=== PATIENT | male | born 1985 | race Caucasian/White ===

== ENCOUNTER 2018-02-09 17:48 | Emergency (ER) | payer MEDICAID, SELFPAY ==
[2018-02-09 17:49] VITALS: BP 136/73; PULSE 79; RESP 18; TEMP 36.9; O2SAT 97; BMI 21.7
--- NOTE | 2018-02-09 20:14 | ED.VISSUMM ---
- ER Visit Summary Date of Service: 02/09/18 Chief Complaint: Left wrist pain History of Present Illness: The patient is a 32 M who states he picked up his daughter 2 weeks ago and felt a pop in his left wrist. Since that time he continues to have a constant aching pain with occasional sharp pain. He took some ibuprofen at work one day last week, but otherwise has not been taking anything for pain. He denies paresthesias. Physical Examination: Vital signs are unremarkable. Patient sitting upright in bed no acute distress. Left upper extremity examination was no tenderness at the shoulder, elbow. He has mild tenderness of the volar aspect of the left wrist at the carpal tunnel. He has full range of motion. Normal cap refill is noted distally. There is no focal tenderness over the hand itself. Test Results: Left wrist x-rays are unremarkable. Emergency Department Course and Treatment: Patient is treated with Naprosyn. He was placed in a Velcro wrist splint. He is referred to establish a primary care physician. Treatment Plan: [] Disposition: Discharge Impression: Left wrist sprain This note was generated with [employer] dictation software. It may contain incorrect words, spelling, and punctuation that were not noted in review of the chart prior to signing ED Disposition - Plan for ED Patient: Disposition: Home or Assisted Living Chief Complaint: Upper Extremity Injury Instructions: ED Splint Care JULIENNE Yates Sprain Wrist Prescriptions: Naproxen [Naprosyn] 500 mg PO BID PRN PRN #20 tablet PRN Reason: Pain Referrals: Reema Beltre MD [STAFF PHYSICIAN] - As Needed
[2018-02-09] MEDS: Naproxen 500 MG Tablet PO (20:20)
[2018-02-09 20:25] VITALS: BP 128/78; PULSE 82; RESP 16; O2SAT 99
== END 2018-02-09 20:25 | disposition home or self-care (01) ==
PROVIDERS: Emergency Provider Emergency Medicine
DX: S63.502A Unspecified sprain of left wrist, initial encounter (principal); X50.1XXA Overexertion from prolonged static or awkward postures, initial encounter; Y93.9 Activity, unspecified; Y92.89 Other specified places as the place of occurrence of the external cause; Y99.9 Unspecified external cause status
CPT/HCPCS: 73110; 99283

== ENCOUNTER 2020-10-20 10:18 | Day surgery (SDC) | payer MEDICAID, SELFPAY ==
--- NOTE | 2020-10-19 13:17 | EKG12_ITS ---
Test Reason : PREOP Blood Pressure : / mmHG Vent. Rate : 054 BPM Atrial Rate : 054 BPM P-R Int : 148 ms QRS Dur : 100 ms QT Int : 424 ms P-R-T Axes : 076 042 065 degrees QTc Int : 402 ms Sinus bradycardia Otherwise normal ECG Confirmed by ELEN YEN, FELISHA ([id number]), editor book PANTERA MALLOY ([id number]) on 10/20/2020 8:19:52 AM Referred By: Charles Coulter Confirmed By:LUTHER MYRICK MD
[2020-10-19 14:07] LABS: Hematocrit 43.6 % (40-54); Hemoglobin 14.5 g/dL (13.0-16.5); Mean Corp Hgb Conc 33.3 g/dL (32-36); Mean Corpuscular Hgb 27.9 pg (27.0-32.0); Mean Platelet Vol. 10.4 fl (6.2-12.0); Platelet Count 450 K/mm3 (150-450); RBC Distribution Width CV 12.9 % (11.6-14.6); RBC Distribution Width SD 39.3 fl (35.1-43.9); Red Blood Count 5.19 M/mm3 (4.6-6.2); White Blood Count 8.1 K/mm3 (4.4-11.0)
[2020-10-20] VITALS (7 sets, daily range): BP systolic 120–133; BP diastolic 68–94; PULSE 61–79; RESP 16; TEMP 36.2–36.9; O2SAT 96–99; BMI 25.7
[2020-10-20] MEDS: Lactated Ringers 1,000 ML 100 ML IV (10:46)
[2020-10-20] MEDS: Cefazolin 2 GM in 0.9% Normal Saline 100 ML IV (12:37)
--- NOTE | 2020-10-20 12:47 | OP.PCM_ITS ---
Problem List (1) Bilateral inguinal hernia Status: Acute Qualifiers: Obstruction and gangrene presence: without obstruction or gangrene Recurrence: non-recurrent Qualified Code(s): K40.20 - Bilateral inguinal hernia, without obstruction or gangrene, not specified as recurrent Report of Operation Date of Procedure: 10/20/20 Pre-Operative Diagnosis: Bilateral inguinal hernias Post-Operative Diagnosis: Same Surgery/Procedure Performed:: Robotically assisted laparoscopic bilateral inguinal hernia repair with mesh Type of Anesthesia:: General Anesthesiologist: Sven Sam Estimated Blood Loss (mL): < 25 cc Description of Procedure: Patient was brought into the operating room. Placed in the supine position. Under excellent endotracheal intubation House catheter was placed the abdomen was sterilely prepped draped in usual fashion. Was injected supraumbilically dissection was carried down to the fascia the fascia grasped with [place]. Varies needle was placed inside the abdomen the abdomen was insufflated to 15 torr. #8 trocar was placed without difficulty. It was flank by 2 other #8 trochars both placed under direct visualization. Patient was placed in the headdown position. The robot was brought in and docked appropriately patient. I scored the peritoneum on the left dissected down towards Harmeet's ligament dissected further laterally quite a bit of dissecting to bring back an indirect inguinal hernia into the peritoneal cavity and then dissected further laterally. I then went to the right side in similar fashion dissected down to Harmeet's and then dissected a indirect inguinal hernia free and then dissected further laterally on both sides protecting the cord and vessel structures and the vas deferens clearly. I placed 2 medium progrip mesh into the inguinal areas they laid completely flat they look quite nice and I was very happy with that I had some overlap in the center which I thought was appropriate I then reperitonealized the area using a 3 OV lock suture covering the mesh completely. Everything laid fat that looked nice remove the trochars under direct visualization good mistakes was noted. Skin incisions were closed with subcuticular stitches of 4- 0 Monocryl. Steri-Strips were applied sterile dressings were applied and the patient tolerated the procedure well. - Admit VTE Documentation VTE Present on Admission: No VTE Mechan Device Prophylaxis: SCD's VTE Pharm Prophylaxis ordered?: No Reason prophylaxis not ordered:: Treatment Not Indicated
--- NOTE | 2020-10-20 12:50 | PCM.DC.HER ---
Discharge Diet: Light diet - advance as tolerated Discharge Activity: Return to Normal Activity, May Drive - when you are no longer taking narcotic pain medications., May Shower - with the bandage in place 1-2 days after surgery. Lifting Restrictions: 20 pounds for 8 weeks. Additional Activity Instructions:: Climbing stairs is fine, walking is encouraged. Sitting in bed may be uncomfortable. Sitting up using your lateral muscles (sitting up sideways) is usually more comfortable. Do not drive, work heavy equipment of sign legal documents for 24 hours. If your hernia repair was an ingunial repair, you may have scrotal swelling, an ice pack and/or athletic support can provide more comfort. Pain medications may cause nausea, you should typically eat light foods as you take your pain medications. Pain medications may also cause constipation. If you have difficulty with this, discuss with your doctor. Call your doctor if your incision/area has: Continuous Slow Oozing, Sudden Increased Bleeding, Increased Pain/ Swelling, Increased Redness, Foul Smelling Discharge Call your doctor if you observe: Fever of 101 or Higher Suture Line Care: Avoid Pulling/Pushing, Avoid Pinching/Bending Additional Dressing/Incision Instructions:: Leave the operative bandage on for 2-3 days. When you remove the bandage, leave the steri-strips on place until your follow up appointment or they fall off. Allergies/Adverse Reactions: Allergies No Known Allergies Allergy (Verified 10/20/20 10:40) Medications to take at Discharge Escitalopram Oxalate [Lexapro] 10 mg PO QHS 10/19/20 Ibuprofen [Motrin] 800 mg PO TID PRN PRN 10/19/20 Oxycodone HCl/Acetaminophen [Percocet 5/325] 1 - 2 tablet PO Q4H PRN PRN 5 Days #30 tablet 10/20/20 The following prescriptions were given: Oxycodone HCl/Acetaminophen [Percocet 5/325] 1 - 2 tablet PO Q4H PRN PRN 5 Days #30 tablet PRN Reason: Pain Transmission [facility]: [facility] Primary Care Physician: Care Physician,No Primary [Primary Care Provider] - Test Results: Test results from this visit will be discussed in further detail at your follow-up appointment, if applicable. Please Follow Up With: Hoffman,Indu PA, PA-C When: Plan to have a follow up appointment in 7 days. Call to schedule.
[2020-10-20] MEDS: Bupivacaine Mpf 0.5% 30 ML VIAL (14:30)
[2020-10-20] MEDS: Acetaminophen 325 MG Tablet PO (15:27)
[2020-10-20] MEDS: oxyCODONE 5 MG Tablet PO (16:05)
== END 2020-10-20 16:44 | disposition home or self-care (01) ==
LOC: SDC 10:19 → AC 10:21
PROVIDERS: Anesthesiology; Referring Provider Surgery; Visit Provider Surgery
PROC: (CPT 49650; principal; 2020-10-20 12:10)
DX: K40.20 Bilateral inguinal hernia, without obstruction or gangrene, not specified as recurrent (principal); F90.9 Attention-deficit hyperactivity disorder, unspecified type
CPT/HCPCS: 00840; 49650; S2900; 36415; 85027; 87426; 93005; C9803; J7120; J2405

== ENCOUNTER 2023-08-05 19:47 | Observation (INO) | payer MEDICAID, SELFPAY ==
[2023-08-05 19:48] VITALS: BP 136/75; PULSE 75; RESP 14; TEMP 36.2; O2SAT 100; BMI 22.5
--- OUTSIDE RECORDS SUMMARY | 2023-08-05 21:05 | XMS RPT_ITS | CCD ---
Author Name Unknown Address [address] [place] [address] Organization [facility] Care Team Providers Care Windmill Technician Name Role Phone Unavailable Unavailable Unavailable ALBERT PIERRE Unavailable Unavailable ALBERT PIERRE Unavailable Unavailable Stacie Villa Unavailable Unavailab Stacie Seals Unavailable Unavailab Adam Edwards Unavailable Unavailable Adam Beckwith Unavailable Unavailable Sea Irving Unavailable Unavailable Sea Irving Unavailable Unavailable STACIE VILLA Unavailable Unavail able MARÍA ALLISON Unavailable Unavailable MARÍA ALLISON Unavailable Unavailable Unavailable Primary Care Provider Unavailrissa Brown MD, Jana Primary Care Provider [phone] Tasia Figueroa MD Unavailable KIARA KELLY Referring Unavail able JANA BROWN Primary Care Unavailable KIARA KELLY Referring Unavail able JANA BROWN Primary Care Unavailable TASIA FIGUEROA Attending Unavailab JANA Sheehan Primary Care Unavailable JANA BROWN Primary Care Unavailable JUAN COTTRELL Attending Unavailable Medications Current Medications Medication Drug Class(es) Dates Sig (Normalized) Sig (Original) acetaminophen 500 mg oral tablet (3 sources) Start: 02-11-2021 take 1 tablet by mouth four times daily as needed for pain acetaminophen (TYLENOL) 500 MG tablet Take 1 tablet by mouth 4 times daily as needed for Pain 120 tablet 0 02/11/2021 Active Completed/Discontinued Medications Medication Drug Class(es) Dates Sig (Normalized) Sig (Original) diclofenac sodium 0.01 mg/mg topical gel (4 sources) Nonsteroidal Anti-inflammatory Drug Start: 11-27-2021 apply 2 g topically three times daily as needed for pain diclofenac (VOLTAREN) 1 % topical gel Indications: Arthritis of knee , History of fracture of lower extremity Apply 2 g to affected area three times daily as needed (knee pain). 180 g 2 11/27/2021 Active Problems Active Problems Problem Classification Problem Date Documented Date Episodic/Chronic Abdominal hernia (2 sources) Bilateral inguinal hernia; Translations: [Bilateral inguinal hernia, without obstruction or gangrene, not specified as recurrent] Onset: 02-11-2021 02-11-2021 Episodic Anxiety disorders (2 sources) Mixed anxiety and depressive disorder; Translations: [Other specified anxiety disorders] Onset: 01-10-2022 Chronic Asthma (2 sources) Asthma; Translations: [Unspecified asthma, uncomplicated] Onset: 08-12-2019 02-11-2021 Chronic Attention-deficit, conduct, and disruptive behavior disorders (6 sources) Attention deficit hyperactivity disorder; Translations: [Attention-deficit hyperactivity disorder, unspecified type] Onset: 08-12-2019 02-11-2021 Chronic External Injury - Natural / Environment (2 sources) Bitten or stung by nonvenomous insect and other nonvenomous arthropods, initial encounter; Translations: [Bitten or stung by nonvenomous insect and other nonvenomous arthropods, initial encounter] Onset: 01-17-2017 Mood disorders (3 sources) Mild depression; Translations: [Major depressive disorder, single episode, mild] Onset: 10-04-2019 02-11-2021 Chronic Osteoarthritis (2 sources) Arthritis of knee; Translations: [Unilateral primary osteoarthritis, unspecified knee] Onset: 11-29-2021 Chronic Other injuries and conditions due to external causes (5 sources) H/O: fracture; Translations: [Personal history of (healed) traumatic fracture] Onset: 11-27-2021 Episodic Other nervous system disorders (1 source) Other chronic pain; Translations: [Chronic pain of both knees] Onset: 11-29-2021 Chronic Other upper respiratory infections (1 source) Upper respiratory infection; Translations: [Acute upper respiratory infection, unspecified] Episodic Residual codes; unclassified (1 source) Generalized aches and pains; Translations: [Pain, unspecified] Episodic Residual codes; unclassified (1 source) Chill; Translations: [Chills (without fever)] Episodic Substance-related disorders (2 sources) Nicotine dependence, cigarettes, uncomplicated; Translations: [Nicotine dependence, cigarettes, uncomplicated] Onset: 03-07-2017 Chronic Past or Other Problems Problem Classification Problem Date Documented Date Episodic/Chronic Administrative/social admission (4 sources) Encounter for other administrative examinations; Translations: [Persons encountering health services in other specified circumstances] Onset: 06-25-2017 Episodic Disorders of teeth and jaw (2 sources) Dental caries, unspecified; Translations: [Dental caries, unspecified] Onset: 03-07-2017 Episodic Headache, including migraine (2 sources) Headache; Translations: [Headache] Onset: 09-06-2017 Episodic Nausea and vomiting (1 source) Nausea with vomiting, unspecified; Translations: [Nausea with vomiting, unspecified] Onset: 09-17-2017 Episodic Other injuries and conditions due to external causes (1 source) Personal history of (healed) traumatic fracture; Translations: [History of fracture of lower extremity] Onset: 11-27-2021 Episodic Other non-traumatic joint disorders (4 sources) Pain in right knee; Translations: [Pain in right knee] Onset: 03-07-2017 Episodic Other non-traumatic joint disorders (1 source) Pain in left knee; Translations: [Chronic pain of both knees] Onset: 11-29-2021 Episodic Superficial injury; contusion (2 sources) Insect bite (nonvenomous) of other part of head, initial encounter; Translations: [Insect bite (nonvenomous) of other part of head, initial encounter] Onset: 01-17-2017 Episodic Viral infection (2 sources) Other viral warts; Translations: [Other viral warts] Onset: 03-07-2017 Episodic Results Test Name Value Interpretation Reference Range Facil ity Vital Signs Date Time Vital Sign Value Performing Clinician Facility 01-10-2022 10:34-0400 Body height 182.9 cm Juan Cottrell MD Work Phone: [facility] 01-10-2022 10:34-0400 Body temperature 97.2 [degF] Juan Cottrell MD Work Phone: [facility] 01-10-2022 10:34-0400 Body weight 87.54 kg Juan Cottrell MD Work Phone: [facility] 01-10-2022 10:34-0400 Diastolic blood pressure 60 mm[Hg] Juan Cottrell MD Work Phone: [facility] 01-10-2022 10:34-0400 Heart rate 74 /min Juan Cottrell MD Work Phone: [facility] 01-10-2022 10:34-0400 Systolic blood pressure 99 mm[Hg] Juan Cottrell MD Work Phone: [facility] 02-14-2021 11:52-0400 Diastolic blood pressure 73 mm[Hg] Alejandro Lopez MD Work Phone: [facility] Work Phone: 02-14-2021 11:52-0400 Heart rate 81 /min Alejandro Lopez MD Work Phone: [facility] Work Phone: 02-14-2021 11:52-0400 Respiratory rate 18 /min Alejandro Lopez MD Work Phone: [facility] Work Phone: 02-14-2021 11:52-0400 SaO2% (BldA) [Mass fraction] 99 % Alejandro Lopez MD Work Phone: [facility] Work Phone: 02-14-2021 11:52-0400 Systolic blood pressure 117 mm[Hg] Alejandro Lopez MD Work Phone: [facility] Work Phone: 02-14-2021 10:47-0400 Body temperature 98.2 [degF] Alejandro Lopez MD Work Phone: [facility] Work Phone: 02-11-2021 10:10-0400 Body height 182.9 cm Tom Brambila MD Work Phone: [facility] Work Phone: 02-11-2021 10:10-0400 Body mass index (BMI) [Ratio] 26.45 kg/m2 Tom Brambila MD Work Phone: [facility] Work Phone: 02-11-2021 10:10-0400 Body temperature 99.39 [degF] Tom Brambila MD Work Phone: [facility] Work Phone: 02-11-2021 10:10-0400 Body weight 88.45 kg Tom Brambila MD Work Phone: [facility] Work Phone: 02-11-2021 10:10-0400 Diastolic blood pressure 63 mm[Hg] Tom Brambila MD Work Phone: [facility] Work Phone: 02-11-2021 10:10-0400 Heart rate 93 /min Tom Brambila MD Work Phone: [facility] Work Phone: 02-11-2021 10:10-0400 Respiratory rate 16 /min Tom Brambila MD Work Phone: [facility] Work Phone: 02-11-2021 10:10-0400 SaO2% (BldA) [Mass fraction] 98 % Tom Brambila MD Work Phone: [facility] Work Phone: 02-11-2021 10:10-0400 Systolic blood pressure 111 mm[Hg] Tom Brambila MD Work Phone: [facility] Work Phone: Encounters Encounter Date Encounter Type Care Provider Facility Start: 01-10-2022 End: 01-10-2022 ambulatory NKOSI STEPHANIE Facility:[facility] Start: 01-10-2022 End: 01-10-2022 Patient encounter procedure Juan Cottrell MD Work Phone: [facility] Procedures Date Procedure Procedure Detail Performing Clinician Start: 01-10-2022 Adult depression screening assessment Juan Cottrell MD Work Phone: Start: 11-29-2021 Radiologic exam knee complete 4/more views Mele Hobbs DO Work Phone: Start: 02-11-2021 Radiologic exam comp lete acute abdomen series Tom Brambila MD Work Phone: Start: 10-09-2020 Adult depression screening assessment [facility] Plan of Treatment Date Care Activity Detail Author Start: 10-12-2025 LIPID SCREEN LIPID SCREEN [facility] Start: 12-28-2024 Urine microalbumin profile DTAP,TDAP,TD (2 - Td or Tdap) [facility] Start: 01-10-2023 Adult depression screening assessment DEPRESSION SCREENING [facility] Start: 02-28-2022 Influenza vaccination [facility] Start: 11-18-2021 COVID-19 VACCINE (3 - Booster for Moderna series) COVID-19 VACCINE (3 - Booster for Moderna series) [facility] Start: 10-09-2021 Adult depression screening assessment DEPRESSION SCREENING [facility] Start: 02-28-2021 Influenza vaccination Flu vaccine (# 1) [facility] Work Phone: Start: 1995 COVID-19 Vaccine (1) COVID-19 Vaccin e (1) [facility] Work Phone: End: 02-14-2021 COVID-19 COVID-19 Lab Routine One Time for 1 Occurrences starting 02/14/2021 until 02/14/2021 [facility] Work Phone: Immunizations Immunization Date Immunization Notes Care Provider Fa adrian 08-12-2019 influenza, injectabl e, quadrivalent, preservative free [facility] 12-28-2014 tetanus toxoid, redu jadyn diphtheria toxoid, and acellular pertussis vaccine, adsorbed [facility] Work Phone: 03-30-2014 TD(adult) unspecifie d formulation Xr [facility] Payers Date Payer Category Payer Medicaid [employer] [id number] 2020-Present [phone] [address] [place] [address] Medicaid [id number] 2020 Medicaid [id number] 2016 Medicaid [id number] Private Health Insurance [id number] Social History Date Type Detail Facility Start: 03-05-2017 End: 04-16-2017 Tobacco smoking status MIIS Unknown if ever smoked [facility] Work Phone: Start: 1985 Sex Assigned At Not on file [facility] Work Phone: Start: 02-11-2021 Tobacco smoking stat [facility] Never smoker [facility] Work Phone: Start: 02-11-2021 Tobacco use and exposure Never used [facility] Start: 02-11-2021 Alcohol intake Current non-dr collections specialist of alcohol (finding) [facility] Work Phone: Start: 11-19-2021 End: 01-10-2022 Exposure to SARS-CoV-2 (event) Not sure [facility] Start: 11-27-2021 Tobacco smoking stat [facility] Ex-smoker [facility] End: 11-27-2016 History of tobacco use Current smoker [facility] End: 11-27-2016 History of tobacco use Cigarette Smoker [facility] Start: 11-27-2021 Tobacco use and exposure User of smokeless tobacco [facility] Start: 11-27-2021 End: 01-10-2022 Alcohol intake Current drinker of alcohol (finding) [facility] Clinical Notes 10-09-2020 to 01-10-2022 Juan Cottrell MD - 01/10/2022 11:37 AM EDT Note Date & Type Note Facility 01-10-2022 Note HNO ID: [id number] Author: Quiana Alba MD Service: ? Author Type: Physician Type: Progress Notes Filed: 03/31/2022 3:47 PM Note Text: Attending Note I discussed patient's history, exam, assessment, and plan with the resident on 01/10/22 but did not examine the patient myself. I reviewed the resident's note. I agree with the resident's assessment and plan unless otherwise noted. Chief Complaint: Anxiety and Depression Quiana Alba MD [facility] 01-10-2022 Note HNO ID: [id number] Author: Juan Cottrell MD Service: ? Author Type: Resident Type: Progress Notes Filed: 01/10/2022 12:08 PM Note Text: Juan Cottrell M.D. Family Medicine ([facility]) Outpatient Office Note 1 [facility] [address] [place], [place] [address] Visit Date: January 10, 2022 Name: Colten Muñoz Date of : 1985 MRN/E #: [id number] Subjective Colten Muñoz is a 36 year old male here today to discuss anxiety and depression. Anxiety/Depression - On Lexapro 5 mg - Wants to go back on Lexapro 10 mg - No recent events triggered it - Had surgery, COVID, whole family got COVID - Moved back to [place] and restarted it - Has been on 5 mg for the past month - Has felt slightly better being back on it - No SI or HI Social History Tobacco Use - Smoking status: Former Smoker Years: 12.00 Types: Cigarettes Quit date: 11/27/2016 Years since quittin.1 - Smokeless tobacco: Current User Substance Use Topics - Alcohol use: Yes Comment: seldom - Drug use: No ALLERGIES No Known Allergies Current Outpatient Medications Medication Sig - diclofenac (VOLTAREN) 1 % topical gel Apply 2 g to affected area three times daily as needed (knee pain). - ibuprofen (MOTRIN) 800 mg tablet Take 1 tablet by mouth every 8 hours as needed for pain (with food.). - escitalopram oxalate (LEXAPRO) 10 mg tablet Take 1 tablet by mouth once daily. No current facility-administered medications for this visit. I have confirmed and edited as necessary the chief complaint, medications, past medical, family and social histories. Objective 01/10/22 1034 BP: 99/60 Pulse: 74 Temp: 36.2 ?C (97.2 ?F) Weight: 193 lb (87.5 kg) Height: 6' (1.829 m) Body mass index is 26.18 kg/m?. Physical Exam Vitals and nursing note reviewed. Constitutional: General: He is not in acute distress. Appearance: Normal appearance. He is not ill-appearing. HENT: Head: Normocephalic and atraumatic. Cardiovascular: Rate and Rhythm: Normal rate and regular rhythm. Pulses: Normal pulses. Heart sounds: Normal heart sounds. No murmur heard. No friction rub. No gallop. Pulmonary: Effort: Pulmonary effort is normal. No respiratory distress. Breath sounds: Normal breath sounds. No wheezing or rales. Abdominal: General: There is no distension. Palpations: Abdomen is soft. Tenderness: There is no abdominal tenderness. There is no guarding or rebound. Musculoskeletal: General: No swelling or tenderness. Skin: General: Skin is warm and dry. Neurological: General: No focal deficit present. Mental Status: He is alert. Results for orders placed or performed in visit on 11/29/21 COMP METABOLIC PANEL Result Value Ref Range Protein, Total 6.8 6.3 - 8.0 g/dL Albumin 4.1 3.9 - 4.9 g/dL Calcium, Total 9.5 8.5 - 10.2 mg/dL Bilirubin, Total 0.3 0.2 - 1.3 mg/dL Alkaline Phosphatase 50 38 - 113 U/L AST 16 14 - 40 U/L ALT 12 10 - 54 U/L Glucose 86 74 - 99 mg/dL BUN 10 9 - 24 mg/dL Creatinine 1.04 0.73 - 1.22 mg/dL Sodium 139 136 - 144 mmol/L Potassium 3.9 3.7 - 5.1 mmol/L Chloride 103 97 - 105 mmol/L CO2 29 22 - 30 mmol/L Anion Gap 7 (L) 9 - 18 mmol/L Estimated Glomerular Filtration Rate 94 >=60 mL/min/1.73m? CBC Result Value Ref Range WBC 7.38 3.70 - 11.00 k/uL RBC 5.18 4.20 - 6.00 m/uL Hemoglobin 14.8 13.0 - 17.0 g/dL Hematocrit 44.4 39.0 - 51.0 % MCV 85.7 80.0 - 100.0 fL MCH 28.6 26.0 - 34.0 pg MCHC 33.3 30.5 - 36.0 g/dL RDW-CV 13.1 11.5 - 15.0 % Platelet Count 438 (H) 150 - 400 k/uL MPV 10.8 9.0 - 12.7 fL Absolute nRBC <0.01 <0.01 k/uL Assessment AND Plan ASSESSMENT/PLAN: 1. Anxiety with depression - ICD9: 300.4, ICD10: F41.8 - Historically on 10 mg daily - Since moving from [place] was off completely. Previously seen and started on 5 mg at last appointment (11/27/21) - Will increase to 10 mg now - Denies any SI or HI, feels that it has already started to work - ESCITALOPRAM 10 MG TABLET Return if symptoms worsen or fail to improve. Discussed the above with the patient and my preceptor using shared decision-making. The patient is in agreement with the diagnostic and treatment plans. Provider: Juan Cottrell MD Date: 01/10/2022 Time: 11:37 AM [facility] 01-10-2022 History of Present illness Narrative Images from the original note were not included. Juan Cottrell M.D. [facility] Medicine ([facility]) Outpatient Office Note 1 [facility] [address] [place], [place] [address] Visit Date: January 10, 2022 Name: Colten Muñoz Date of : 1985 MRN/E #: [id number] Subjective Colten Muñoz is a 36 year old male here today to discuss anxiety and depression. Anxiety/Depression - On Lexapro 5 mg - Wants to go back on Lexapro 10 mg - No recent events triggered it - Had surgery, COVID, whole family got COVID - Moved back to [place] and restarted it - Has been on 5 mg for the past month - Has felt slightly better being back on it - No SI or HI Social History Tobacco Use Smoking status: Former Smoker Years: 12.00 Types: Cigarettes Quit date: 11/27/2016 Years since quittin.1 Smokeless tobacco: Current User Substance Use Topics Alcohol use: Yes Comment: seldom Drug use: No ALLERGIES No Known Allergies Current Outpatient Medications Medication Sig diclofenac (VOLTAREN) 1 % topical gel Apply 2 g to affected area three times daily as needed (knee pain). ibuprofen (MOTRIN) 800 mg tablet Take 1 tablet by mouth every 8 hours as needed for pain (with food.). escitalopram oxalate (LEXAPRO) 10 mg tablet Take 1 tablet by mouth once daily. No current facility-administered medications for this visit. I have confirmed and edited as necessary the chief complaint, medications, past medical, family and social histories. Objective 01/10/22 1034 BP: 99/60 Pulse: 74 Temp: 36.2 C (97.2 F) Weight: 193 lb (87.5 kg) Height: 6' (1.829 m) Body mass index is 26.18 kg/m . Physical Exam Vitals and nursing note reviewed. Constitutional: General: He is not in acute distress. Appearance: Normal appearance. He is not ill-appearing. HENT: Head: Normocephalic and atraumatic. Cardiovascular: Rate and Rhythm: Normal rate and regular rhythm. Pulses: Normal pulses. Heart sounds: Normal heart sounds. No murmur heard. No friction rub. No gallop. Pulmonary: Effort: Pulmonary effort is normal. No respiratory distress. Breath sounds: Normal breath sounds. No wheezing or rales. Abdominal: General: There is no distension. Palpations: Abdomen is soft. Tenderness: There is no abdominal tenderness. There is no guarding or rebound. Musculoskeletal: General: No swelling or tenderness. Skin: General: Skin is warm and dry. Neurological: General: No focal deficit present. Mental Status: He is alert. Results for orders placed or performed in visit on 11/29/21 COMP METABOLIC PANEL Result Value Ref Range Protein, Total 6.8 6.3 - 8.0 g/dL Albumin 4.1 3.9 - 4.9 g/dL Calcium, Total 9.5 8.5 - 10.2 mg/dL Bilirubin, Total 0.3 0.2 - 1.3 mg/dL Alkaline Phosphatase 50 38 - 113 U/L AST 16 14 - 40 U/L ALT 12 10 - 54 U/L Glucose 86 74 - 99 mg/dL BUN 10 9 - 24 mg/dL Creatinine 1.04 0.73 - 1.22 mg/dL Sodium 139 136 - 144 mmol/L Potassium 3.9 3.7 - 5.1 mmol/L Chloride 103 97 - 105 mmol/L CO2 29 22 - 30 mmol/L Anion Gap 7 (L) 9 - 18 mmol/L Estimated Glomerular Filtration Rate 94 >=60 mL/min/1.73m CBC Result Value Ref Range WBC 7.38 3.70 - 11.00 k/uL RBC 5.18 4.20 - 6.00 m/uL Hemoglobin 14.8 13.0 - 17.0 g/dL Hematocrit 44.4 39.0 - 51.0 % MCV 85.7 80.0 - 100.0 fL MCH 28.6 26.0 - 34.0 pg MCHC 33.3 30.5 - 36.0 g/dL RDW-CV 13.1 11.5 - 15.0 % Platelet Count 438 (H) 150 - 400 k/uL MPV 10.8 9.0 - 12.7 fL Absolute nRBC <0.01 <0.01 k/uL Assessment & Plan ASSESSMENT/PLAN: 1. Anxiety with depression - ICD9: 300.4, ICD10: F41.8 - Historically on 10 mg daily - Since moving from [place] was off completely. Previously seen and started on 5 mg at last appointment (11/27/21) - Will increase to 10 mg now - Denies any SI or HI, feels that it has already started to work - ESCITALOPRAM 10 MG TABLET Return if symptoms worsen or fail to improve. Discussed the above with the patient and my preceptor using shared decision-making. The patient is in agreement with the diagnostic and treatment plans. Provider: Juan Cottrell MD Date: 01/10/2022 Time: 11:37 AM documented in this encounter [facility] 11-30-2021 Note HNO ID: [id number] Author: Kiara Kelly MD Service: ? Author Type: Physician Type: Progress Notes Filed: 11/30/2021 2:58 PM Note Text: Attending Note I discussed the patient with the resident at the time of the visit, and agree with assessment and plan. I participated in the medical decision making during this visit. I did not personally see the patient. I confirm the diagnosis of Encounter to establish care (primary encounter diagnosis) Moderate episode of recurrent major depressive disorder (hcc) Chronic pain of both knees Arthritis of knee History of fracture of lower extremity and agree with the resident's plan of care, except as noted below. See resident's note for further details. Kiara Kelly MD [facility] 11-27-2021 Note HNO ID: [id number] Author: Tasia Figueroa MD Service: ? Author Type: Resident Type: Progress Notes Filed: 11/29/2021 9:58 PM Note Text: Tasia Figueroa MD [facility] Family Medicine [address] [place] [address] [employer] [employer] [facility] [address] [place], [place] [address] Visit Date: November 27, 2021 Name: Colten Muñoz Date of : 1985 MRN/E #: [id number] Chief Complaint: No chief complaint on file. Subjective Colten Muñoz is a 36 year old male here with the following complaint(s): Patient is a 36-year-old male with past history of depression who presents to the office for establishment of care. Patient denying acute complaints, states he would like to be restarted on his Lexapro. States he had been started on Lexapro within roughly the past 1 to 2 years, and had taken it for around 6 to 8 months. States that during COVID, he was unable to attend several of his doctor's appointments, and so he stopped receiving the Lexapro. States that he had noticed a significant improvement in his mood while he was taking the Lexapro. States it additionally helps him with his energy, appetite, concentration. Denies history of ever experiencing suicidal ideation and denies any previous suicide attempts. Denies past history of manic symptomatology including sleeplessness, risky behavior, flight of ideas, talkativeness, psychomotor agitation. States he has not followed up with a therapist, states he is currently not interested in engaging with a therapist/counselor. Additionally endorses knee pain, states it is intermittent and bilateral, and exacerbates with the weather. States it stems from a fall from a 40 foot judit when he was 12. Review of Systems Constitutional: Negative for chills, fatigue and fever. Respiratory: Negative for cough and shortness of breath. Cardiovascular: Negative for chest pain, palpitations and leg swelling. Gastrointestinal: Negative for constipation, diarrhea, nausea and vomiting. Musculoskeletal: Knee pain, intermittent and bilateral. States that it exacerbates with cold weather Skin: Negative for pallor. Neurological: Negative for weakness and headaches. Psychiatric/Behavioral: Positive for dysphoric mood. Negative for self-injury and suicidal ideas. The patient is not nervous/anxious. Social History Tobacco Use - Smoking status: Former Smoker Years: 12.00 Types: Cigarettes Quit date: 11/27/2016 Years since quittin.0 - Smokeless tobacco: Current User Substance Use Topics - Alcohol use: Yes Comment: seldom - Drug use: No ALLERGIES No Known Allergies Current Outpatient Medications Medication Sig - diclofenac (VOLTAREN) 1 % topical gel Apply 2 g to affected area three times daily as needed (knee pain). - ibuprofen (MOTRIN) 800 mg tablet Take 1 tablet by mouth every 8 hours as needed for pain (with food.). - escitalopram oxalate (LEXAPRO) 5 mg tablet Take 1 tablet by mouth once daily. - escitalopram oxalate (LEXAPRO) 10 mg tablet Take 1 tablet by mouth once daily. No current facility-administered medications for this visit. I have confirmed and edited as necessary the chief complaint, medications, past medical, family and social histories. Objective 11/27/21 0853 BP: 108/56 Pulse: 73 Temp: 36.6 ?C (97.8 ?F) Weight: 192 lb 9.6 oz (87.4 kg) Height: 6' (1.829 m) Body mass index is 26.12 kg/m?. Physical Exam Constitutional: General: He is not in acute distress. HENT: Head: Normocephalic. Nose: Nose normal. Eyes: Extraocular Movements: Extraocular movements intact. Pupils: Pupils are equal, round, and reactive to light. Cardiovascular: Rate and Rhythm: Normal rate and regular rhythm. Heart sounds: Normal heart sounds. Pulmonary: Effort: Pulmonary effort is normal. Breath sounds: Normal breath sounds. Musculoskeletal: General: No tenderness. Normal range of motion. Cervical back: Normal range of motion. Skin: General: Skin is warm. Findings: No erythema. Neurological: Mental Status: He is alert and oriented to person, place, and time. Psychiatric: Comments: Endorses low mood. 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 Fatoumata program: PATIENT SAFETY AND FALL PREVENTION Assessment / Plan Diagnoses and all orders for this visit: Encounter to establish care - COMP METABOLIC PANEL; Future - CBC; Future Moderate episode of recurrent major depressive disorder (HCC) - CBC; Future Chronic pain of both knees - CBC; Future Arthritis of knee - XR KNEE GENERAL 4V AP BOTH/PA BOTH/LAT/MERC RIGHT; Future - XR KNEE GENERAL 4V AP BOTH/PA BOTH/LAT/MERC LEFT; Future - diclofenac (VOLTAREN) 1 % topica (more content not included)... [facility] 08-03-2021 Note HNO ID: [id number] Author: Lázaro Mueller Service: ? Author Type: ? Type: Progress Notes Filed: 08/03/2021 12:36 PM Note Text: POPULATION HEALTH NAVIGATION OUTREACH Action/FYI DECLINED Pt identified by name and : YES, via phone Outreach Outcome/Action Spoke to patient or caregiver: Patient declined Reason for Outreach Care Gap or Scheduling/Wellness visits Payer: Payor: [employer] / Plan: [employer] MEDICAID / Product Type: Medicaid / Care Gap Reviewed:: CHARLA Reminder: Reminder note to check Health Maintenance for items below Health Maintenance items due: COVID-19 VACCINE(1) Never done ONE PNEUMOVAX PRIOR TO AGE 65 Never done INFLUENZA(1) due on 02/28/2021 Message Sent to Practice: NO Navigation Signature: Lázaro Mueller August 03, 2021 12:35 PM [facility] 08-03-2021 Note Patient Outreach (NE TNAV) COLTEN MUÑOZ ([id number]) 1985 Date Time Provider Department 08/03/21 NO PCP NETNAV During your visit today, we recorded the following information about you: Lázaro Mueller 08/03/2021 12:36 PM Signed POPULATION HEALTH NAVIGATION OUTREACH Action/FYI DECLINED Pt identified by name and : YES, via phone Outreach Outcome/Action Spoke to patient or caregiver: Patient declined Reason for Outreach Care Gap or Scheduling/Wellness visits Payer: [facility] / Plan: [employer] MEDICAID / Product Type: Medicaid / Care Gap Reviewed:: CHARLA Reminder: Reminder note to check Health Maintenance for items below Health Maintenance items due: COVID-19 VACCINE(1) Never done ONE PNEUMOVAX PRIOR TO AGE 63 Never done INFLUENZA(1) due on 02/28/2021 Message Sent to Practice: NO Navigation Signature: Lázaro Mueller August 03, 2021 12:35 PM Allergies As of Date: 08/03/2021 (No Known Allergies) Date Reviewed: 10/31/2020 Reviewed by: Heather Forbes Ma - Fully Assessed Prescriptions as of 08/03/2021 - escitalopram oxalate (LEXAPRO) 10 mg tablet Take 1 tablet by mouth once daily. - ibuprofen (MOTRIN) 800 mg tablet Take 1 tablet by mouth every 8 hours as needed for Pain (with food.) for up to 90 doses. Problem List As Of Date 08/03/2021 Noted Resolved ADHD (Attention Deficit Hyperactivity Disorder)* Encounter Status:Closed by LÁZARO MONTALVO on 08/03/21 [facility] 10-31-2020 Note HNO ID: [id number] Author: Charles Coulter MD Service: ? Author Type: Physician Type: Progress Notes Filed: 10/31/2020 2:25 PM Note Text: Subjective: Patient is status post a robotically assisted laparoscopic bilateral inguinal hernia repair with mesh on 10/20/2020. He is doing well. He still feels that the right side is a little bit more sore than the left side he is not having any difficulty moving his bowels he is urinating without difficulty. Objective:There were no vitals taken for this visit. Incisions are healing up quite nicely. There is no signs of hematoma or bruising in the penis and scrotal area. Assessment: Aftercare Plan: I want him to be off of work until 11/19/2020. At that time he can reassess to see if he can get back to work doing his normal duties. If not he may need more time off work night instructed him to come back and see Indu Medellin. [facility] 10-12-2020 Note HNO ID: [id number] Author: Charles Coulter Service: ? Author Type: Physician Type: Progress Notes Filed: 10/14/2020 10:29 AM Note Text: HISTORY AND PHYSICAL Colten Muñoz 1985 REFERRING PHYSICIAN: Georgia Rodriguez ([facility]), * CHIEF COMPLAINT: Consult (Femoral Hernia) HPI: Colten is a 35 year old male with a complaint of a bulge and discomfort in his right inguinal region and left inguinal region. The patient notes discomfort in this area with lifting and straining. The symptoms have increased, over the past 1 year. The patient notes no symptoms of bowel obstruction and denies nausea or vomiting. The patient was seen by his primary care physician who felt the patient has a hernia. Colten was referred for evaluation and treatment. The patient is being seen by me today at the request of Dr. Rodriguez for my opinion and advice regarding Non-recurrent bilateral inguinal hernia without obstruction or gangrene (primary encounter diagnosis). PAST MEDICAL HISTORY Diagnosis Date - ADHD (attention deficit hyperactivity disorder) PAST SURGICAL HISTORY Procedure Laterality Date - PAST SURGICAL HISTORY OF age 13 right ankle surgery - PAST SURGICAL HISTORY OF age 13 left tib/fibula fracture Current Outpatient Medications Medication Sig - escitalopram oxalate (LEXAPRO) 10 mg tablet Take 1 tablet by mouth once daily. - ibuprofen (MOTRIN) 800 mg tablet Take 1 tablet by mouth every 8 hours as needed for Pain (with food.) for up to 90 doses. No current facility-administered medications for this visit. ALLERGIES: Patient has no known allergies. PERSONAL HISTORY: Social History Tobacco Use - Smoking status: Current Every Day Smoker Packs/day: 1.00 Years: 12.00 Pack years: 12.00 Types: Cigarettes - Smokeless tobacco: Never Used Substance Use Topics - Alcohol use: Yes Comment: seldom - Drug use: No FAMILY HISTORY: FAMILY HISTORY Problem Relation Age of Onset - Emphysema Father - Diabetes Mother - Psychiatry Mother mental problems' REVIEW OF SYMPTOMS: The review of systems data was entered by the nurse and reviewed by me Nursing Notes: Tamy Beavers LPN 10/12/2020 3:35 PM Signed REVIEW OF SYSTEMS: General: The patient denies fatigue, denies weight loss, denies weight gain, denies feeling hot, and denies feelings of cold. Eyes: The patient denies glaucoma, denies eye injury/surgery, does not wear glasses or contacts. Ear/Nose/Throat: The patient denies allergies, denies hayfever, denies ear infections, and denies bloody noses. Cardiovascular: The patient denies chest pain, denies heart disease, denies high blood pressure,denies cardiac stent, denies prior heart attack, denies irregular heart beat, denies high cholesterol, denies poor circulation, denies heart failure, other cardiac issues, denies claudication, denies cold feet, denies peripheral arterial stent. Respiratory: The patient denies tuberculosis, denies pneumonia, denies frequent cough, denies pulmonary embolism, denies shortness of breath, and denies coughing up blood. Gastrointestinal: The patient denies difficulty swallowing, denies acid reflux, denies ulcers, denies vomiting, denies jaundice/hepatitis, denies gallbladder problems, denies black or tarry stools, denies hemorrhoids, denies bleeding from rectum, denies diverticulitis, denies constipation, denies diarrhea, denies loss of stool control, and denies hernias. Kidney/Bladder: The patient denies kidney stones, denies urine infections, and denies bloody urine. Skin: The patient denies a history of skin cancer, denies bleeding/changing moles, and denies a history of skin rash. Neurologic: The patient denies a history of epilepsy/convulsions, denies headaches, denies head/spinal injuries, and denies stroke/TIA. Psychiatric: The patient denies psychiatric medications, denies depression, and denies voices, denies substance abuse. Endocrine: The patient denies thyroid disorders, denies diabetes, and denies hormonal problems. Hematologic: The patient denies a history of bruising, denies bleeding, and denies anemia, denies blood clots. Infections: The patient denies a history of measles and mumps, denies rheumatic fever, and denies sexually transmitted diseases. Musculoskeletal: The patient denies back pain/injury, denies back problems, denies sciatica, denies knee/foot trouble, denies arthritis, or denies gout. When was patient's last Mammogram screening? N/A [facility]AM[facility]ATION: General: The patient is 35 year old male, well nourished, well hydrated in no acute distress. The patient is oriented to time, place, and person. VITALS: Blood pressure 118/72, pulse 66, temperature 36.3 ?C (97.4 ?F), height 182.9 cm (6'), weight 87.5 kg (193 lb), SpO2 97 %. Body mass index is 26.18 kg/m?. HEENT: Normal cephalic, ataumatic, pupils are equally round, sclera are anicteric, (more content not included)... [facility] 10-09-2020 Note HNO ID: [id number] Author: Georgia Rodriguez Service: ? Author Type: Nurse Practitioner Type: Progress Notes Filed: 10/09/2020 12:47 PM Note Text: This is a 35 year old male who presents today with: No chief complaint on file. HISTORY OF PRESENT ILLNESS: Colten Muñoz is a 35 year old male. No chief complaint on file. Patient presents to the office for wellness exam and to establish care in [facility]. Diet: well balanced diet. Exercise: 2 children who are active, lots of walking/running. Dental: has been a couple years, needs to schedule appointment- no difficulty chewing. Eye: Has been several years- needs appointment. Sleep: 4-5, difficulty falling/staying asleep, has been worse since being off lexapro. Mood: Has been off lexapro for 4 months, moved and needed to get a new PCP. Increased sadness and anxiety. Denies panic attacks or suicidal ideation. Would like to get covid vaccine when available. with 2 children, working in factory making parts. Had a left foot injury several years ago, would like referral to podiatry for shoe inserts. Hernia: Diagnosed with hernia a long time ago, it can be painful, refers he can feel a bulge in his groin on the right and left side. Would like consult to general surgery for further evaluation. PAST MEDICAL HISTORY: PAST MEDICAL HISTORY Diagnosis Date - ADHD (Attention Deficit Hyperactivity Disorder) PAST SURGICAL HISTORY Procedure Laterality Date - PAST SURGICAL HISTORY OF age 13 right ankle surgery - PAST SURGICAL HISTORY OF age 13 left tib/fibula fracture ALLERGIES Patient has no known allergies. MEDICATIONS Current Outpatient Medications Medication Sig - IBUPROFEN 200 MG CAP takes about 4 a day No current facility-administered medications for this visit. FAMILY HISTORY Problem Relation Age of Onset - Emphysema Father - Diabetes Mother - Psychiatry Mother mental problems' Social History Tobacco Use - Smoking status: Current Every Day Smoker Packs/day: 1.00 Years: 12.00 Pack years: 12.00 Types: Cigarettes Substance Use Topics - Alcohol use: Yes Comment: seldom - Drug use: No REVIEW OF SYSTEMS GENERAL: No weight loss, malaise or fevers/chills HEENT: Negative for frequent or significant headaches, No changes in hearing or vision. NECK: Negative for lumps, goiter, pain and significant neck swelling RESPIRATORY: Negative for cough, hemoptysis, wheezing, dyspnea or shortness of breath CARDIOVASCULAR: Negative for chest pain, leg swelling, orthopnea, or palpitations GI: No nausea, vomiting, or diarrhea/constipation. No hematochezia/melena. No heartburn or reflux symptoms. : No history of dysuria, frequency or incontinence MUSCULOSKELETAL: Negative for joint pain or swelling. SKIN: Negative for lesions, rash, and itching ENDOCRINE: Negative for cold or heat intolerance, polyuria, polydipsia and goiter NEURO: No history of headaches, syncope, paralysis, seizures or tremors MOOD: + Depression Groin: + lump in groin EXAM: BP 120/78 Pulse 64 Resp 20 Ht 184 cm (6' 0.44 ) Wt 86.2 kg (190 lb) BMI 25.46 kg/m? PHYSICAL EXAM: General Appearance: Well appearing, alert, in no acute distress, well-hydrated, well nourished.. Skin: Skin color, texture, turgor normal, no suspicious rashes or lesions. Head: Normocephalic, no masses, lesions, tenderness or abnormalities. Eyes: Anicteric sclera. Pupils are equally round and reactive to light. Extraocular movements are intact. . Ears: External ears normal, canals clear. TM's Pearly Pelayo. Neck: Supple, no adenopathy; thyroid symmetric, normal size, no bruits. Lungs: Lungs clear to auscultation. No wheezing, rhonchi, rales. Heart: RRR without murmur, gallop, or rubs. No ectopy. Abdomen: Normal abdominal exam, Abdomen soft, non-tender. Bowel sounds normal. No masses, organomegaly, Negative CVA tenderness. Extremities: No deformities, edema, skin discoloration, clubbing or cyanosis. Good capillary refill. Musculoskeletal: No joint swelling, deformity, or tenderness. Peripheral Pulses: Normal, Capillary refill <2secs, strong peripheral pulses, Pulses palpable. Neurologic: Gait normal. Reflexes normal and symmetric. Sensation grossly intact. Strength 5/5 bilaterally. Groin: + lump in groin present on left side- non- tender, no erythema noted. Consistent with femoral hernia. Mood: pleasant, good eye contact, engaged. ASSESSMENT/PLAN: 1. Wellness examination - ICD9: V70.0, ICD10: Z00.00 (primary diagnosis) - Recommended regular aerobic exercise. - Check CMP and fasting lipid panel - Vaccination(s) recommended today: Covid - Follow up for annual exam in one year. 2. Femoral hernia without obstruction or gangrene, recurrence not specified, unspecified laterality - ICD9: 553.00, ICD10: K41.90 - Consult for general surgery given 3. Anxiety with depression - ICD9: 300.4, ICD10: F41.8 - Will start Lexapro today - Educa (more content not included)... [facility] documented in this encounter [facility] Work Phone: Evaluation note* Diagnosis Upper respiratory tract infection, unspecified type- Primary [facility] Phone: [facility] note* Diagnosis Arthritis of knee Unspecified arthropathy, lower leg History of fracture of lower extremity [facility] Diagnosis Anxiety with depression- [facility]* Attachments The following attachments cannot be sent through Care Everywhere. * Myalgia (Brazilian) documented [facility] Work Phone: Hospital Discharge instructions* Instructions* Alejandro Lopez MD - 02/14/2021 You need to isolate and quarantine at home and away from all other people until over the 19th to his back and negative. If covert's test is positive he will need to quarantine until the end of next week. Return to Emergency Room immediately if difficulty breathing or worse in any other way. * Attachments The following attachments cannot be sent through Care Everywhere. * Coronavirus Disease (COVID-19): General Info (Brazilian) * URI (Upper Respiratory Infection) (Brazilian) documented in [facility] Work Phone: Reason for referral (narrative)* Diagnostic Procedure Only (Routine) - Closed Specialty Diagnoses / Procedures Referred By Contac t Referred To Contact XR IMAGING Diagnoses Arthritis of knee History of fracture of lower extremity Procedures XR KNEE GENERAL 4V AP BOTH/PA BOTH/LAT/MERC LEFT RADIOLOGIC EXAM KNEE COMPLETE 4/MORE VIEWS Kiara Kelly MD [address] [place] [address] Xr Imaging Referral ID Status Reason Start Date Expiration Date V isits Requested Visits Authorized [id number] Closed Auto-Generate d Referral 11/27/2021 12/27/2022 1 1 * Diagnostic Procedure Only (Routine) - Closed Specialty Diagnoses / Procedures Referred By Contac t Referred To Contact XR IMAGING Diagnoses Arthritis of knee History of fracture of lower extremity Procedures XR KNEE GENERAL 4V AP BOTH/PA BOTH/LAT/MERC RIGHT RADIOLOGIC EXAM KNEE COMPLETE 4/MORE VIEWS Kiara Kelly MD [address] [place] [address] Xr Imaging Referral ID Status Reason Start Date Expiration Date V isits Requested Visits Authorized [id number] Closed Auto-Generate d Referral 11/27/2021 12/27/2022 1 1 [facility] for visit Narrative* Diagnostic Procedure Only (Routine) - Closed Specialty Diagnoses / Procedures Referred By Contac t Referred To Contact XR IMAGING Diagnoses Arthritis of knee History of fracture of lower extremity Procedures XR KNEE GENERAL 4V AP BOTH/PA BOTH/LAT/MERC LEFT RADIOLOGIC EXAM KNEE COMPLETE 4/MORE VIEWS Kiara Kelly MD [address] [place] [address] Xr Imaging Referral ID Status Reason Start Date Expiration Date V isits Requested Visits Authorized [id number] Closed Auto-Generate d Referral 11/27/2021 12/27/2022 1 1 [facility] Summary Purpose Family History No Family History Records FoundNo Family History Records FoundNo Family History Records FoundNo Family History Records FoundNo Family History Records FoundNo Family History Records FoundNo Family History Records Found Advance Directives No Advanced Directives Records FoundNo Advanced Directives Records FoundNo Advanced Directives Records FoundNo Advanced Directives Records FoundNo Advanced Directives Records FoundNo Advanced Directives Records FoundNo Advanced Directives Records Found Reason for Referral Status Reason Specialty Diagnoses / Procedures Referred By Contact Referred To Contact Open Specialty Services Required Family Medicine Diagnoses Upper respiratory tract infection, unspecified type Alejandro Lopez MD [address] [place] [address] [facility] [address] [address] [place] [address] Scheduling Instructions [facility] [address] [place] [address] Additional Source Comments (unrecognized sect ion and content) No Status Records FoundNo Status Records FoundNo Status Records FoundNo Status Records FoundNo Status Records FoundNo Status Records FoundNo Status Records Found INFORMATION SOURCE (unrecogn ized section and content) DATE CREATED AUTHOR AUTHOR'S ORGANIZ ATION 12/18/2017 [facility] DATE CREATED AUTHOR AUTHOR'S ORGANIZ ATION 12/24/2017 [facility] DATE CREATED AUTHOR AUTHOR'S ORGANIZ ATION 01/01/2018 [facility] [place] [facility] DATE CREATED AUTHOR AUTHOR'S ORGANIZ ATION 02/18/2021 [facility] DATE CREATED AUTHOR AUTHOR'S ORGANIZ ATION 09/18/2021 [facility] DATE CREATED AUTHOR AUTHOR'S ORGANIZ ATION 04/02/2022 [facility] Reason for Visit (unrecogniz ed section and content) Reason Comments Cough Fever Pharyngitis Letter for School/Work Reason Comments Anxiety Depression Ordered Prescriptions (unrec ognized section and content) Prescription Sig Dispensed Refills Start Date End Da te benzonatate (TESSALON PERLES) 100 MG capsule Take 1 capsule by mouth 3 times daily as needed for Cough 30 capsule 0 02/14/2021 02/24/2021 Scheduled Active and Recently Administ ered Medications (unrecognized section and content) Source Comments (unrecognize d section and content) In the event this informatio n is protected by the Federal Confidentiality of Alcohol and Drug Abuse Patient Records regulations: The Federal rules restrict any use of the information to criminally investigate or prosecute any alcohol or drug abuse patient.[facility] the event this information is protected by the Federal Confidentiality of Alcohol and Drug Abuse Patient Records regulations: The Federal rules restrict any use of the information to criminally investigate or prosecute any alcohol or drug abuse patient.[facility] the event this information is protected by the Federal Confidentiality of Alcohol and Drug Abuse Patient Records regulations: The Federal rules restrict any use of the information to criminally investigate or prosecute any alcohol or drug abuse patient.[facility] the event this information is protected by the Federal Confidentiality of Alcohol and Drug Abuse Patient Records regulations: The Federal rules restrict any use of the information to criminally investigate or prosecute any alcohol or drug abuse patient.[facility] Care Teams (unrecognized sec tion and content) Windmill Technician Relationship Specialty Start Date End Date Jana Brown MD [address] [place], [place] [id number] PCP - General Family Practice 10/26/21 Tasia Figueroa MD [address] [facility] [address] [place], [place] [phone] PCP Resident Family Practice 10/26/21 Windmill Technician Relationship Specialty Start Date End Date Jana Brown MD [address] [place], [place] [id number] PCP - General Family Practice 10/26/21 Tasia Figueroa MD [address] [facility] [address] [place], [place] [phone] PCP Resident Family Practice 10/26/21 FOR RECORDS PERTAINING TO PATIENTS WHO ARE OR HAVE BEEN ENROLLED IN A CHEMICAL DEPENDENCY/SUBSTANCEABUSE PROGRAM, SOME INFORMATION MAY BE OMITTED. This clinical summary was aggregated from multiple sources. Caution should be exercised in using it in the provision of clinical care. This summary normalizes information from multiple sources, and as a consequence, information in this document may materially change the coding, format and clinical context of patient data. In addition, data may be omitted in some cases. CLINICAL DECISIONS SHOULD BE BASED ON THE PRIMARY CLINICAL RECORDS. [facility] [employer] [facility]. provides no warranty or guarantee of the accuracy or completeness of information in this document.
--- NOTE | 2023-08-05 21:08 | CT_ITS ---
STUDY: CT BRAIN WITHOUT CONTRAST REASON FOR EXAM: Male, 37 years old. seizure RADIATION DOSAGE (If Supplied By Facility): CTDIvol = ( 44.99 ) mGy, DLP = ( 812.98 ) mGycm TECHNIQUE: Transaxial CT imaging of the brain was performed without administration of intravenous contrast material. Individualized dose optimization techniques were used for this CT. COMPARISON: No relevant priors. FINDINGS: Normal soft tissue structures. Normal calvarium. Normal size ventricles and extra-axial spaces for the patient''s age. Normal white matter tracts of the cerebral hemispheres. Normal basal ganglia and thalami. Normal brainstem. Normal cerebellum. There is no intracranial hemorrhage. There are no findings of an acute ischemic infarction. Normal visualized paranasal sinuses. CT/Brain/Head without Contrast IMPRESSION: Normal unenhanced CT scan of the brain for age. Electronically Signed: Judy Tang MD at 21:48 EST ,
--- NOTE | 2023-08-05 21:09 | EDS_ITS ---
HPI History of Present Illness Chief Complaint: Seizure Narrative Narrative: 37-year-old male presenting with concern for seizure. His states she witnessed it. She states that he was in the power passenger seat and she looked over and he was clutching his chest and tensing up and leaning backwards. She states he seized for about a minute and a half. Is postictal about 4 to 5 minutes. Awake and talking after this. Did not fall and hit his head. He denies headache but has mild nausea. He denies pain elsewhere. He does not feel as if he is confused and is at baseline. No history of seizure disorder. States he is not sleep deprived. He states he smokes a little marijuana here and there but does not do any drugs otherwise. States he has a history of migraines nothing similar. He does not have a headache. PFSH PFSH Medical History no medical history Allergy/AdvReac Type Severity Reaction Status Date / Time No Known Allergies Allergy Verified 10/20/20 10:40 Social History Smoking Status: Current every day smoker tobacco type: e-cigarettes ROS ROS ED Constitutional Constitutional ED: Denies chills, fever(s) or sweats Eyes Eyes: Denies blurry vision or change in vision ENT ENT ED: Denies ear pain or sore throat Cardiovascular Cardiovascular: Denies chest pain, palpitations or racing heartbeat Respiratory/Chest Respiratory/Chest: Denies cough, dyspnea or sputum Gastrointestinal Gastrointestinal: Reports nausea; Denies abdominal pain, constipation, diarrhea or vomiting Genitourinary Genitourinary ED: Denies dysuria, hematuria or urinary frequency Musculoskeletal Musculoskeletal: Denies arthralgias, myalgias or neck pain Integumentary Denies abscess, Abrasions or rash Neurologic Neurologic: Denies headache(s), paresthesias or weakness Psychiatric Psychiatric: Denies anxiety, depression, suicidal ideation or suicidal thoughts Endocrine Endocrinology: Denies polydipsia or polyuria EXAM Physical Exam Const Vital Signs: 08/05/23 19:48 08/05/23 21:48 Temperature 97.2 F L Temperature Source Temporal Pulse Rate 75 63 Respiratory Rate 14 17 Blood Pressure 136/75 H Blood Pressure Mean 95 Pulse Ox 100 96 Oxygen Delivery Method Room Air Positive well nourished General Appearance ED: NAD; Negative for pallor HEENT Reports moist mucous membranes Eyes PERRL and EOMs intact bilaterally Neck no lymphadenopathy Resp normal respiratory effort and clear to auscultation bilaterally Auscultation: Negative for rales, rhonchi or wheezes Cardio regular rate and regular rhythm GI normal to inspection, nondistended, normoactive bowel sounds Extremity normal to inspection Neuro oriented x3, CN's II-XII intact bilaterally and no sensory deficits noted Evelyn Coma Scale: document GCS findings Spontaneous Obeys Commands Oriented 15 Sensorium / Orientation: alert Meningeal Signs: no meningeal signs Speech: speech normal Gait (Neuro): normal gait Motor Exam: strength 5/5 throughout, muscle tone normal throughout, no pronator drift and no movement abnormalities noted Skin no rashes or lesions noted General Skin Exam: Negative for jaundice or pallor MDM MDM MDM Narrative Medical decision making narrative: Patient presenting with concern for new seizure. He feels well now except for some nausea. His states he seemed to be seizing for about a minute and a half and was postictal for a few minutes. Differential includes seizure, dysrhythmia, dehydration, anemia, electrolyte abnormalities. CBC will be obtained to assess white blood cell count, hemoglobin, platelets. BMP to assess renal function, electrolytes, glucose. EKG to assess for dysrhythmia. High- sensitivity troponin be obtained to assess for ischemia. Patient given IV fluids and Zofran. CT brain will be obtained as he has new onset seizure. No focal neurologic deficits or lateralizing signs or symptoms on exam. EKG on my interpretation shows normal sinus rhythm with ventricular rate of 70 bpm without sign of ischemic change or ectopy. CBC, BMP within normal limits. High- sensitivity troponin is 5. Discussed with pulmonology (Dr. Nguyen). She recommended admission for EEG and MRI. She will be consulted in the hospital and give recommendations. She states that if there is any further seizure activity while she admitted he should be given 20 mg/kg of Keppra. Otherwise they recommend to hold off on medication for this time. Patient amenable to admission. Impression 1. New onset seizure Lab Data Attestation: I reviewed the patient's lab results. Labs: Laboratory Results - last 24 hr 08/05/23 19:55 WBC 8.2 RBC 4.77 Hgb 13.6 Hct 41.3 MCV 86.6 MCH 28.5 MCHC 32.9 RDW Std Deviation 41.0 RDW Coeff of Britni 13.2 Plt Count 412 MPV 11.4 Immature Gran % (Auto) 0.400 Neut % (Auto) 49.3 Lymph % (Auto) 36.5 [place] % (Auto) 9.4 Eos % (Auto) 3.2 Baso % (Auto) 1.2 H Absolute Neuts (auto) 4.0 Absolute Lymphs (auto) 2.98 Nucleated RBC % 0 Sodium 138 Potassium 3.2 L Chloride 107 Carbon Dioxide 25.0 Anion Gap 6 BUN 11 Creatinine 0.95 Estim Creat Clear Calc 111.34 Est GFR (MDRD) Af Amer 112 Est GFR (MDRD) Non-Af 93 BUN/Creatinine Ratio 11.5 Glucose 83 Calcium 9.1 Troponin I High Sens 5 Radiography Diagnostic Testing: Clinical Impression(s) from Imaging Studies Brain CT 08/05/23 21:08 IMPRESSION: Normal unenhanced CT scan of the brain for age. Electronically Signed: Judy Tang MD at 21:48 EST , Discharge Plan Triage Chief Complaint: Seizure ED Provider: Micheal Younger Dx/Rx/DC Orders Primary Care Provider: Care Physician,No Primary Referrals: Care Physician,No Primary [Primary Care Provider] -
[2023-08-05] MEDS: Ondansetron 4 MG/2 ML Vial IV (21:16)
[2023-08-05] MEDS: 0.9% Normal Saline (1000mL) 1,000 ML 1000 ML IV (21:16)
[2023-08-05 21:23] LABS: Absolute Lymphocyte Count 2.98 X10^3/uL (0.83-4.51); Basophil% 1.2 % (0-1); Eosinophil# 0.26 X10^3/uL; Eosinophils% 3.2 % (0-5); Hematocrit 41.3 % (40-54); Hemoglobin 13.6 g/dL (13.0-16.5); Lymphocyte # 2.98 X10^3/ul (0.83-4.51); Lymphocyte % 36.5 % (19-41); Mean Corp Hgb Conc 32.9 g/dL (32-36); Mean Corpuscular Hgb 28.5 pg (27.0-32.0); Mean Corpuscular Volume 86.6 fL (80-94); Mean Platelet Vol. 11.4 fl (6.2-12.0); Monocyte# 0.77 X10^3/uL; Monocyte% 9.4 % (0-10); NRBC Flagged by Analyzer 0 % (0-5); Neutrophil # 4.02 X10^3/uL (2.7-7.7); Neutrophil % 49.3 % (47-70); Platelet Count 412 K/mm3 (150-450); RBC Distribution Width CV 13.2 % (11.6-14.6); Red Blood Count 4.77 M/mm3 (4.6-6.2); White Blood Count 8.2 K/mm3 (4.4-11.0)
[2023-08-05 21:40] LABS: Anion Gap 6 (5-15); BUN 11 mg/dL (7-18); BUN/Creat Ratio 11.5 RATIO (10-20); Calcium,Total 9.1 mg/dL (8.5-10.1); Chloride 107 mmol/L (98-107); Creatinine, Serum 0.95 mg/dL (0.70-1.30); EST Glomerular Filtration Rate 93 mL/min (>60); Est Glom Filt Rate - Afr Amer 112 mL/min (>60); Estimated Creatinine Clearance 111.34 ml/min; Glucose 83 mg/dL (74-106); Potassium 3.2 mmol/L (3.5-5.1); Sodium Level 138 mmol/L (136-145); Troponin-I HS 5 pg/mL (3.0-78.0)
[2023-08-05 21:48] VITALS: PULSE 63; RESP 17; O2SAT 96
[2023-08-05] MEDS: Potassium Chloride Oral Tablet 20 MEQ PO (21:50)
--- NOTE | 2023-08-05 21:56 | HP.PCM.HOS_ITS ---
HPI - General General Date of Admission: 08/05/23 Date of Service: 08/05/23 Chief Complaint: Seizure episode while sitting in the car in the passenger seat today HPI Narrative COLTEN GODOY, is a 37 M with no significant past medical history was brought to ED by EMS for the seizure episode witnessed by his who was dolly driver of the car. As per the EMS report, was driving car and was sitting in the passenger seat and she noticed that became tense, rigid and extended posture with leaning backward. After that he started shaking that lasted for 1 to 2 minutes. The patient was postictal for about 4 to 5 minutes her pulled the car in the parking and called the EMS. As per patient himself, he stated he remembered that he was sitting in the car and then he does not remember until he found himself in the ambulance. EMS stated that patient was confused and disoriented x 3. Patient did not had any major injury as he was sitting in the car. He did not sleep deprived. He himself denies urinary incontinence biting tongue or recent acute illness including fever URI or dysuria or UTI or rash. Patient denies routine chronic alcohol use but drinks occasionally. He vapes nicotine but denies cigarette smoking or chewing. He denies substance use but he smokes marijuana. EMS vitals were in normal range. No prior history of head injury or seizure or major neurological history. In ED, patient vital in normal range. ED called teleneurology Dr. Nguyen and she recommended admission for EEG and MRI. Labs, vitals and imaging reviewed and discussed in assessment and plan. [facility] Medical History no medical history Allergy/AdvReac Type Severity Reaction Status Date / Time No Known Allergies Allergy Verified 10/20/20 10:40 Social History Smoking Status: Current every day smoker tobacco type: e-cigarettes ROS ROS Narrative Constitutional: Denies fatigue and weakness. No fever. HEENT: Reports systems reviewed and no addt'l complaints, except as documented Respiratory/Chest: No acute shortness of breath or respiratory distress or wheezing. CVS: Denies chest pain or pressure. Gastrointestinal: Denies coffee ground emesis, hematemesis or vomiting Genitourinary: Denies burning urination or new urinary tract symptoms Musculoskeletal: Denies acute joint pain or limited range of motion. No acute injury Neurologic: Seizure episode as described in HPI. No history of prior stroke or head injury. skin: No ulcer. No rash Endocrinology: Reports systems reviewed and no addt'l complaints, except as documented Hematologic/Lymphatic: Reports systems reviewed and no addt'l complaints, except as documented Rest 14 ROS are negative except as mentioned in HPI Vital Signs Vital Signs Vital Signs: 08/05/23 19:48 08/05/23 21:48 Temperature 97.2 F L Temperature Source Temporal Pulse Rate 75 63 Respiratory Rate 14 17 Blood Pressure 136/75 H Blood Pressure Mean 95 Pulse Ox 100 96 Oxygen Delivery Method Room Air Weight Weight: 166 lb 3.657 oz Body Mass Index (BMI) 22.5 Physical Exam Narrative General: Alert, Oriented x3, Cooperative HEENT: Atraumatic, PERRLA, EOMI, Normocephalic Oral: Oral mucosa moist. No Gingival or Mucosal Lesions/ Ulcerations Neck: Supple, No JVD, Negative Carotid Bruits Chest wall/Lungs: Air entry equal in bilateral lung bases. No crepitation/rhonchi Cardiovascular: Regular rate, Regular Rhythm, Normal S1, Normal S2, No M/G/R Abdomen: Bowel Sounds Present, Soft, Non Tender, Non-Distended : No dysuria. No renal angle tenderness. No suprapubic tenderness. Extremities: No edema, Capillary Refill Less than 3 Seconds Skin: No rashes, No breakdown Musculoskeletal: No Tenderness to Palpation of Joints or Extremities. ROM intact and full. Neurological: Cranial nerves II-XII grossly intact, DTR 2+/4. No acute focal neurological deficit. Psych/Mental Status: Flat affect. Results Lab / Micro Data 08/05/23 19:55 08/05/23 19:55 Labs: Laboratory Results - last 24 hr 08/05/23 19:55: WBC 8.2, RBC 4.77, Hgb 13.6, Hct 41.3, MCV 86.6, MCH 28.5, MCHC 32.9, RDW Std Deviation 41.0, RDW Coeff of Britni 13.2, Plt Count 412, MPV 11.4, Immature Gran % (Auto) 0.400, Neut % (Auto) 49.3, Lymph % (Auto) 36.5, [place] % (A uto) 9.4, Eos % (Auto) 3.2, Baso % (Auto) 1.2 H, Absolute Neuts (auto) 4.0, A bsolute Lymphs (auto) 2.98, Nucleated RBC % 0, Sodium 138, Potassium 3.2 L, C hloride 107, Carbon Dioxide 25.0, Anion Gap 6, BUN 11, Creatinine 0.95, Estim Creat Clear Calc 111.34, Est GFR (MDRD) Af Amer 112, Est GFR (MDRD) Non-Af 93, BUN/Creatinine Ratio 11.5, Glucose 83, Calcium 9.1, Troponin I High Sens 5 Imaging Radiology Impression Brain CT 08/05/23 21:08 IMPRESSION: Normal unenhanced CT scan of the brain for age. Electronically Signed: Judy Tang MD at 21:48 EST , Assessment & Plan Assessment/Plan (1) Seizure: PLAN: Plan This is a 37-year-old gentleman being admitted for further evaluation of single seizure episode. 1. Single seizure episode does not meet diagnosis of epilepsy disorder: Patient is being admitted in PCU as an observation for further evaluation. CT head without contrast was normal as per age. MRI brain and EEG ordered and then teleneurology consult. ED physician already initiated the consult. IV lorazepam 2 mg as needed for seizure episode. Liver chemistry normal, GGT 10. Serum alcohol level negative. U tox ordered and pending. 2. Mild hypokalemia and hypophosphatemia: Serum potassium 3.2, phosphorus 1.2, magnesium 2.1. IV potassium phosphate ordered. 3. DVT prophylaxis, low risk. Early ambulation encouraged. Living will/advanced directive/end of life care: Patient does not have living will or advanced directive. His is next of kin. 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 After discussion of benefits/risks procedures involved with full code, DNR CC arrest and DNR CC, the patient opted for full code. Patient does want artificial life support including intubation, tube feed, ventilator and/chest compression, central venous catheter, vasopressor and DC shock if needed Total time spent in [id number] encounter in discussion of advanced directive 17 minutes. Laboratory Results 08/05/23 19:55: WBC 8.2, RBC 4.77, Hgb 13.6, Hct 41.3, MCV 86.6, MCH 28.5, MCHC 32.9, RDW Std Deviation 41.0, RDW Coeff of Britni 13.2, Plt Count 412, MPV 11.4, Immature Gran % (Auto) 0.400, Neut % (Auto) 49.3, Lymph % (Auto) 36.5, [place] % (Auto) 9.4, Eos % (Auto) 3.2, Baso % (Auto) 1.2 H, Absolute Neuts (auto) 4.0, Absolute Lymphs (auto) 2.98, Nucleated RBC % 0, Sodium 138, Potassium 3.2 L, Chloride 107, Carbon Dioxide 25.0, Anion Gap 6, BUN 11, Creatinine 0.95, Estim Creat Clear Calc 111.34, Est GFR (MDRD) Af Amer 112, Est GFR (MDRD) Non-Af 93, BUN/Creatinine Ratio 11.5, Glucose 83, Calcium 9.1, Troponin I High Sens 5 08/05/23 21:56: Phosphorus 1.2 L, Magnesium 2.1, Total Bilirubin 0.30, Direct Bilirubin 0.11, GGT 10 L, AST 17, ALT 22, Alkaline Phosphatase 44 L, Total Protein 7.2, Albumin 3.8, Globulin 3.4, Ethyl Alcohol < 3.0 08/05/23 22:36: Urine Opiates Screen Pending, Urine Methadone Screen Pending, Ur Barbiturates Screen Pending, Ur Phencyclidine Scrn Pending, Ur Amphetamines Screen Pending, MDMA (Ecstasy) Screen Pending, U Benzodiazepines Scrn Pending, Urine Cocaine Screen Pending, U Cannabinoids Screen Pending, Ur Drug Screen Comment Clinical Impression(s) from Imaging Studies Brain CT 08/05/23 21:08
[2023-08-05 22:22] LABS: Alcohol, Blood (Medical)-Serum < 3.0 mg/dL
[2023-08-05 22:27] LABS: AST(SGOT) 17 U/L (15-37); Alanine Aminotransfer ALT/SGPT 22 U/L (16-61); Albumin, Serum 3.8 g/dL (3.2-5.0); Alkaline Phosphatase 44 U/L (45-117); Bilirubin, Direct 0.11 mg/dL (0.00-0.30); GGTP 10 U/L (15-85); Globulin 3.4 g/dL (2.2-4.2); Magnesium 2.1 mg/dL (1.6-2.6); Phosphorus 1.2 mg/dL (2.5-4.9); Protein, Total 7.2 g/dL (6.4-8.2)
--- OUTSIDE RECORDS SUMMARY | 2023-08-05 22:40 | XMS RPT_ITS | CCD ---
Author Name Unknown Address [address] [place] [address] Organization [facility] Care Team Providers Care Transportation Assistant Name Role Phone Unavailable Unavailable Unavailable ALBERT PIERRE Unavailable Unavailable ALBERT PIERRE Unavailable Unavailable Stacie Villa Unavailable Unavailab Stacie Seals Unavailable Unavailab Adam Edwards Unavailable Unavailable Adam Beckwith Unavailable Unavailable Sea Irving Unavailable Unavailable Sea Irving Unavailable Unavailable STACIE VILLA Unavailable Unavail able MARÍA ALLISON Unavailable Unavailable MARÍA ALLISON Unavailable Unavailable Unavailable Primary Care Provider Unavailrissa Brown MD, Jana Primary Care Provider [phone] Tasia Figueroa MD Unavailable KIARA KELLY Referring [...] 182.9 cm Juan Cottrell MD Work Phone: [facility] 01-10-2022 10:34-0400 Body temperature 97.2 [degF] Juan Cottrell MD Work Phone: [facility] 01-10-2022 10:34-0400 Body weight 87.54 kg Juan Cottrell MD Work Phone: [facility] 01-10-2022 10:34-0400 Diastolic blood pressure 60 mm[Hg] Juan Cottrell MD Work Phone: [facility] 01-10-2022 10:34-0400 Heart rate 74 /min Juan Cottrell MD Work Phone: [facility] 01-10-2022 10:34-0400 Systolic blood pressure 99 mm[Hg] Juan Cottrell MD Work Phone: [facility] 02-14-2021 11:52-0400 Diastolic blood pressure 73 mm[Hg] [...] 111 mm[Hg] Tom Brambila MD Work Phone: [facility] Work Phone: Encounters Encounter Date Encounter Type Care Provider Facility Start: 01-10-2022 End: 01-10-2022 ambulatory NKOSI STEPHANIE Facility:[facility] Start: 01-10-2022 End: 01-10-2022 Patient encounter procedure Juan Cottrell MD Work Phone: [facility] Procedures Date Procedure Procedure Detail Performing Clinician [...] Author Start: 10-12-2025 LIPID SCREEN LIPID SCREEN [facility] Start: 12-28-2024 Urine microalbumin profile DTAP,TDAP,TD (2 - Td or Tdap) [facility] Start: 01-10-2023 Adult depression screening assessment DEPRESSION SCREENING [facility] Start: 02-28-2022 Influenza vaccination C [facility] Start: 11-18-2021 COVID-19 VACCINE (3 - Booster for Moderna series) COVID-19 VACCINE (3 - Booster for Moderna series) [facility] Start: 10-09-2021 Adult depression screening assessment DEPRESSION SCREENING [facility] Start: 02-28-2021 Influenza vaccination Flu vaccine (# 1) [facility] Work Phone: Start: 1995 COVID-19 Vaccine (1) COVID-19 Vaccin e (1) [facility] Work Phone: End: 02-14-2021 COVID-19 COVID-19 Lab Routine One Time for 1 Occurrences starting 02/14/2021 until 02/14/2021 [facility] Work Phone: Immunizations Immunization Date Immunization Notes Care Provider Fa adrian 08-12-2019 influenza, injectabl e, quadrivalent, preservative free [facility] 12-28-2014 tetanus toxoid, redu jadyn diphtheria toxoid, and acellular pertussis vaccine, adsorbed [facility] Work Phone: 03-30-2014 TD(adult) unspecifie d formulation Xr [facility] Payers Date Payer Category Payer Medicaid [employer] [id number] 2020-Present [phone] [address] [place] [address] Medicaid [id number] 2020 Medicaid [id number] 2016 Medicaid [id number] Private Health Insurance [id number] Social History Date Type Detail Facility Start: 03-05-2017 End: 04-16-2017 Tobacco smoking status SDIS Unknown if ever smoked [facility] Work Phone: Start: 1985 Sex Assigned At Not on file [facility] Work Phone: Start: 02-11-2021 Tobacco smoking stat [facility] Never smoker [facility] Work Phone: Start: 02-11-2021 Tobacco use and exposure Never used [facility] Start: 02-11-2021 Alcohol intake Current non-dr umbrella cutter of alcohol (finding) [facility] Work Phone: Start: 11-19-2021 End: 01-10-2022 Exposure to SARS-CoV-2 (event) Not sure [facility] Start: 11-27-2021 Tobacco smoking stat [facility] Ex-smoker [facility] End: 11-27-2016 History of tobacco use Current smoker [facility] End: 11-27-2016 History of tobacco use Cigarette Smoker [facility] Start: 11-27-2021 Tobacco use and exposure User of smokeless tobacco [facility] Start: 11-27-2021 End: 01-10-2022 Alcohol intake Current drinker of alcohol (finding) [facility] Clinical Notes 10-09-2020 to 01-10-2022 Juan Cottrell MD - 01/10/2022 11:37 AM EDT Note Date & Type Note Facility 01-10-2022 Note HNO ID: [id number] Author: Quiana Alba MD Service: ? Author [...] Complaint: Anxiety and Depression Quiana Alba MD [facility] 01-10-2022 Note HNO ID: [id number] Author: Juan Cottrell MD Service: ? Author Type: Resident Type: Progress Notes Filed: 01/10/2022 12:08 PM Note Text: Juan Cottrell M.D. [facility] Family [facility] ([facility]) Outpatient Office Note 1 [facility] [address] [place], [place] [address] Visit Date: January 10, 2022 Name: Colten Muñoz Date of : 1985 MRN/E #: [id number] Subjective Colten Muñoz is a 36 year old male here today to discuss anxiety and depression. Anxiety/Depression - On Lexapro 5 mg - Wants to go back on Lexapro 10 mg - No recent events triggered it - Had surgery, COVID, whole family got COVID - Moved back to [place] and restarted it - Has been on [...] 10 mg daily - Since moving from [place] was off completely. Previously seen and started [...] Cottrell MD Date: 01/10/2022 Time: 11:37 AM [facility] 01-10-2022 History of Present illness Narrative Images from the original note were not included. Juan Cottrell M.D. [facility] Medicine ([facility]) Outpatient Office Note 1 [facility] [address] [place], [place] [address] Visit Date: January 10, 2022 Name: Colten Muñoz Date of : 1985 MRN/E #: [id number] Subjective Colten Muñoz is a 36 year old male here today to discuss anxiety and depression. Anxiety/Depression - On Lexapro 5 mg - Wants to go back on Lexapro 10 mg - No recent events triggered it - Had surgery, COVID, whole family got COVID - Moved back to [place] and restarted it - Has been on [...] 10 mg daily - Since moving from [place] was off completely. Previously seen and started [...] Time: 11:37 AM documented in this encounter [facility] 11-30-2021 Note HNO ID: [id number] Author: Kiara Kelly MD Service: ? Author [...] note for further details. Kiara Kelly MD [facility] 11-27-2021 Note HNO ID: [id number] Author: Tasia Figueroa MD Service: ? Author Type: Resident Type: Progress Notes Filed: 11/29/2021 9:58 PM Note Text: Tasia Figueroa MD [facility] Family Medicine [address] [place] [address] [facility] [address] [place], [place] [address] Visit Date: November 27, 2021 Name: Colten Muñoz Date of : 1985 MRN/E #: [id number] Chief Complaint: No chief complaint on file. [...] ED PATIENT INFORMATION Result Value Ref Range Card Room Manager Provider ARACELY your patient COLTEN MUÑOZ has [...] 1 % topica (more content not included)... [facility] 08-03-2021 Note HNO ID: [id number] Author: Lázaro Mueller Service: ? Author Type: ? Type: Progress Notes Filed: 08/03/2021 12:36 PM Note Text: POPULATION HEALTH NAVIGATION OUTREACH Action/FYI DECLINED Pt identified by name and : YES, via phone Outreach Outcome/Action Spoke to patient or caregiver: Patient declined Reason for Outreach Care Gap or Scheduling/Wellness visits Payer: Payor: [employer] MEDICA[employer] / Plan: [employer] / Product Type: Medicaid / Care Gap Reviewed:: CHARLA Reminder: Reminder note to check Health Maintenance for items below Health Maintenance items due: COVID-19 VACCINE(1) Never done ONE PNEUMOVAX PRIOR TO AGE 63 Never done INFLUENZA(1) due on 02/28/2021 Message Sent to Practice: NO Navigation Signature: Lázaro Mueller August 03, 2021 12:35 PM [facility] 08-03-2021 Note Patient Outreach (NE TNAV) COLTEN MUÑOZ ([id number]) 1985 Date Time Provider Department 08/03/21 NO PCP NETNAV During your visit today, we recorded the following information about you: Lázrao Mueller 08/03/2021 12:36 PM Signed POPULATION HEALTH NAVIGATION OUTREACH Action/FYI DECLINED Pt identified by name and : YES, via phone Outreach Outcome/Action Spoke to patient or caregiver: Patient declined Reason for Outreach Care Gap or Scheduling/Wellness visits Payer: [facility] / Plan: [employer] / Product [...] Encounter Status:Closed by LÁZARO MONTALVO on 08/03/21 [facility] 10-31-2020 Note HNO ID: [id number] Author: Charles Coulter MD Service: ? Author [...] to come back and see Indu [place]. [facility] 10-12-2020 Note HNO ID: [id number] Author: Charles Coulter Service: ? Author Type: Physician Type: Progress Notes Filed: 10/14/2020 10:29 AM Note Text: HISTORY AND PHYSICAL Colten Muñoz 1985 REFERRING PHYSICIAN: Georgia Rodriguez ([facility]), * CHIEF COMPLAINT: Consult (Femoral Hernia) [...] last Mammogram screening? N/A [facility]: General: The patient is 35 [...] sclera are anicteric, (more content not included)... [facility] 10-09-2020 Note HNO ID: [id number] Author: Georgia Rodriguez Service: ? Author Type: [...] today - Educa (more content not included)... [facility] documented in this encounter [facility] Work Phone: Evaluation note* Diagnosis Upper respiratory tract infection, unspecified type- Primary documented in this encounter [facility] Work Phone: Evaluation note* Diagnosis Arthritis of knee Unspecified arthropathy, lower leg History of fracture of lower extremity [facility] Diagnosis Anxiety with depression- [facility] Attachments The following attachments cannot be sent through Care Everywhere. * Myalgia (Senegalese) [facility] Work Phone: Hospital Discharge instructions* Instructions* Alejandro [...] Everywhere. * Coronavirus Disease (COVID-19): General Info (Senegalese) * URI (Upper Respiratory Infection) (Senegalese) documented in [facility] Work Phone: Reason for referral (narrative)* Diagnostic Procedure Only (Routine) - Closed Specialty Diagnoses / Procedures Referred By Contac t Referred To Contact XR IMAGING Diagnoses Arthritis of knee History of fracture of lower extremity Procedures XR KNEE GENERAL 4V AP BOTH/PA BOTH/LAT/MERC LEFT RADIOLOGIC EXAM KNEE COMPLETE 4/MORE VIEWS Kiara Kelly MD [address] [place] [address] Xr Imaging Referral ID Status Reason Start Date Expiration Date V isits Requested Visits Authorized [id number] Closed Auto-Generate d Referral 11/27/2021 12/27/2022 1 1 * Diagnostic Procedure Only (Routine) - Closed Specialty Diagnoses / Procedures Referred By Contac t Referred To Contact XR IMAGING Diagnoses Arthritis of knee History of fracture of lower extremity Procedures XR KNEE GENERAL 4V AP BOTH/PA BOTH/LAT/MERC RIGHT RADIOLOGIC EXAM KNEE COMPLETE 4/MORE VIEWS Kiara Kelly MD [address] [place] [address] Xr Imaging Referral ID Status Reason Start Date Expiration Date V isits Requested Visits Authorized [id number] Closed Auto-Generate d Referral 11/27/2021 12/27/2022 1 1 [facility] for visit Narrative* Diagnostic Procedure Only (Routine) - Closed Specialty Diagnoses / Procedures Referred By Contac t Referred To Contact XR IMAGING Diagnoses Arthritis of knee History of fracture of lower extremity Procedures XR KNEE GENERAL 4V AP BOTH/PA BOTH/LAT/MERC LEFT RADIOLOGIC EXAM KNEE COMPLETE 4/MORE VIEWS Kiara Kelly MD [address] [place] [address] Xr Imaging Referral ID Status Reason Start Date Expiration Date V isits Requested Visits Authorized [id number] Closed Auto-Generate d Referral 11/27/2021 12/27/2022 1 1 [facility] Summary Purpose Family History No Family History [...] tract infection, unspecified type Alejandro Lopez MD [address] [place] [address] [address] [place] [address] [place] [address] Scheduling Instructions [facility] [address] [place] [address] Additional Source Comments (unrecognized sect ion and content) No Status Records FoundNo Status Records FoundNo Status Records FoundNo Status Records FoundNo Status Records FoundNo Status Records FoundNo Status Records Found INFORMATION SOURCE (unrecogn ized section and content) DATE CREATED AUTHOR AUTHOR'S ORGANIZ ATION 12/18/2017 [facility] DATE CREATED AUTHOR AUTHOR'S ORGANIZ ATION 12/24/2017 [facility] DATE CREATED AUTHOR AUTHOR'S ORGANIZ ATION 01/01/2018 [facility] DATE CREATED AUTHOR AUTHOR'S ORGANIZ ATION 02/18/2021 [facility] DATE CREATED AUTHOR AUTHOR'S ORGANIZ ATION 09/18/2021 [facility] DATE CREATED AUTHOR AUTHOR'S ORGANIZ ATION 04/02/2022 [facility] Reason for Visit (unrecogniz ed section [...] or prosecute any alcohol or drug abuse patient.[facility] the event this information is protected by the Federal Confidentiality of Alcohol and Drug Abuse Patient Records regulations: The Federal rules restrict any use of the information to criminally investigate or prosecute any alcohol or drug abuse patient.[facility] HospitalIn the event this information is protected by the Federal Confidentiality of Alcohol and Drug Abuse Patient Records regulations: The Federal rules restrict any use of the information to criminally investigate or prosecute any alcohol or drug abuse patient.[facility] Hospital[facility] the event this information is protected by the Federal Confidentiality of Alcohol and Drug Abuse Patient Records regulations: The Federal rules restrict any use of the information to criminally investigate or prosecute any alcohol or drug abuse patient.[facility] Care Teams (unrecognized sec tion and content) Transportation Assistant Relationship Specialty Start Date End Date Jana Brown MD [address] [place], [place] [id number] PCP - General Family Practice 10/26/21 Tasia Figueroa MD 1 [facility] [address] [place], [place] [phone] PCP Resident Family Practice 10/26/21 Transportation Assistant Relationship Specialty Start Date End Date Jana Brown MD [address] [place], [place] [phone] PCP - General Family Practice 10/26/21 Tasia Figueroa MD 1 [facility] [address] [place], [place] [phone] PCP Resident Family Practice 10/26/21 FOR RECORDS [...] BE BASED ON THE PRIMARY CLINICAL RECORDS. [facility] [employer] [facility]. provides no warranty or guarantee of the accuracy or completeness of information in this document.
[2023-08-05 23:04] VITALS: BMI 21.9
[2023-08-05 23:24] VITALS: BP 112/68; PULSE 64; RESP 18; TEMP 36.5; O2SAT 98
[2023-08-05 23:29] LABS: Amphetamine Urine VISTA NEGATIVE (<1000 ng/mL); Barbiturate Urine VISTA NEGATIVE (< 200 ng/mL); Benzodiazepine Urine VISTA NEGATIVE (< 200 ng/mL); Cocaine Urine VISTA NEGATIVE (< 300 ng/mL); Ecstacy Urine VISTA NEGATIVE (< 500 ng/mL); Methadone Urine VISTA NEGATIVE (< 300 ng/mL); PCP Urine VISTA NEGATIVE (< 25 ng/mL); THC Urine VISTA POSITIVE (< 50 ng/mL); Vista UDS pH Range 7
[2023-08-05] MEDS: Potassium Phosphate 30 MM in 0.9% Normal Saline (250mL Bag) 250 ML 42 MM IV (23:38)
[2023-08-06 01:16] VITALS: O2SAT 97
[2023-08-06] MEDS: KCL 20MEQ in 0.45%NS 20 MEQ/1,000 ML IV.SOLN. 100 MEQ IV ×2 (02:42→13:20)
[2023-08-06 03:43] VITALS: BP 104/62; PULSE 60; RESP 18; TEMP 36.7; O2SAT 99
--- NOTE | 2023-08-06 05:55 | MRI_ITS ---
EXAM: MR HEAD WITHOUT INTRAVENOUS CONTRAST CLINICAL INDICATION: Seizure. TECHNIQUE: Multiplanar and multisequence MR images of the brain were obtained without intravenous contrast. COMPARISON: CT head without contrast 08/05/2023. FINDINGS: BRAIN AND EXTRA-AXIAL SPACES: No focal signal abnormalities throughout the brain parenchyma in all pulse sequences. The limbic lobes are normal and symmetrical. No neuronal migrational disorders. No intra- or extra-axial hemorrhage. No evidence of acute infarct. No intracranial mass or mass effect. There is preservation of the cote/white matter interface. Posterior fossa structures are unremarkable. No hydrocephalus. Normal ventricles and cisterns. SELLA: Unremarkable. Normal sella turcica, pituitary gland, infundibular stalk, optic chiasm and hypothalamus. AUDITORY SYSTEM: Unremarkable. The internal auditory canals are patent. BONES/JOINTS: Unremarkable. No discrete lytic or blastic abnormalities. SINUSES: Unremarkable as visualized. Clear. MASTOID AIR CELLS: Unremarkable as visualized. Clear. ORBITS: Unremarkable as visualized. Both globes, extraocular muscles, optic nerves and retrobulbar fat appear unremarkable. VASCULATURE: Unremarkable as visualized. Normal flow voids in the major intracranial circulation. MRI/Brain without Contrast IMPRESSION: Normal MRI brain without contrast including the thin coronal cuts through the limbic lobes. Electronically Signed: Jone Addison MD at 10:43 EST ,
[2023-08-06 06:00] VITALS: BMI 22.8
[2023-08-06 06:35] VITALS: O2SAT 96
[2023-08-06 08:11] LABS: Anion Gap 2 (5-15); BUN 11 mg/dL (7-18); BUN/Creat Ratio 13.1 RATIO (10-20); Calcium,Total 8.4 mg/dL (8.5-10.1); Chloride 110 mmol/L (98-107); Creatinine, Serum 0.84 mg/dL (0.70-1.30); EST Glomerular Filtration Rate 108 mL/min (>60); Est Glom Filt Rate - Afr Amer 131 mL/min (>60); Estimated Creatinine Clearance 127.49 ml/min; Glucose 109 mg/dL (74-106); Sodium Level 138 mmol/L (136-145)
[2023-08-06 08:21] LABS: Phosphorus 4.8 mg/dL (2.5-4.9)
--- NOTE | 2023-08-06 09:59 | EEG_ITS ---
EEG Results Procedure Details EEG Procedure Details: EEG Report Patient: Ivan Muñoz Date of : 1985 Sex: Male Age: 37 years old Height: 0.0 in in Inpatient routine EEG report: Study start time: 08/06/2023 07:53 AM End Time: 08/06/2023 08:05 AM History: 37 year old male presented with first time seizure. Indication: rule out seizure Technical Description: This is a 21-channel digital EEG recording with time- locked video and single-channel electrocardiogram. Electrodes are placed acc ording to the 10 to 20 International System. Additional T1 and T2 electrodes were placed. The patient was monitored continuously by EEG technicians by video and EEG recording was reviewed intermittently with annotations to the EEG record made every two hours. Portions of this record are reviewed using bandpass filters of 1 to 70 Hz and sensitivity of 7mV/mm. EEG DESCRIPTION Background: This recording was obtained during awake and drowsy state. In the maximally alert state, a posterior dominant rhythm was a symmetric, reactive, well-modulated 8-9 Hz with a normal frequency-amplitude gradient. During drowsiness, there was attenuation of the waking background. Stage II sleep architecture was normal in morphology and distribution. Slow wave sleep was marked by appropriate bursts of diffuse delta activity. Background was comprised of bursts of generalized sharply contoured theta slow activity. Activation Procedures: Photic stimulation and hyperventilation induced normal physiological response. Sporadic Epileptiform Discharges: none Focal slow activity: none Rhythmic or Periodic activity: none Seizures: none Patient Events: none EEG DIAGNOSIS Occasional bursts of generalized sharply contoured theta slow activity, does not appear to be epileptiform in etiology. CLINICAL INTERPRETATION This routine EEG is indicative of mild degree of encephalopathy. No clear epil eptiform activity or seizure were noted during this period of recording. Occasional bursts of generalized sharply contoured theta slow activity, does not appear to be epileptiform in etiology. Clinical correlation is recommended. EEG performed by: HAO Killian HAO Killian M.D. Neurology
--- NOTE | 2023-08-06 10:05 | CASEMGMT ---
SW met with patient as he is self pay. Patient stated he declined the insurance through his work because at the time he had Medicaid. Patient said Medicaid has been canceled and patient has not gotten around to re-applying. SW let patient know Aliyah from [employer] will likely be checking in with him and she would be able to help him re-apply. SW asked patient if he needed resources for anything else and patient declined. SW called [employer] and left a voice mail with patient's information. Zulay Nichols SUPERVISOR BLOOD DONOR RECRUITERSDonaldo PARKS
[2023-08-06 10:33] VITALS: BP 120/81; PULSE 46; RESP 16; TEMP 36; O2SAT 98
--- NOTE | 2023-08-06 12:31 | CON.PCM.NE_ITS ---
Assessment and Plan: Neuro Assessment/Plan COLTEN GODOY is a 37 M with a past medical history of marijuana use, being evaluated by Teleneurology for seizure. Based on history of the event, this is concerning for definitie seizure but there are no concerning elements on history. Exam is unremarkable. MRI Brain and EEG are also unremarkable. This is an unprovoked seizure Given this is a first time seizure, the risk of recurrent seizure is 20-40%. This was discussed with the patient and that starting an AED now will not necessarily decrease time to seizure freedom if he has epilepsy. Seizure precautions have also been reviewed with patient and he understands he cannot drive for 3-6 months and should avoid activities that could lead to injury if loss of consciousness is present. Followup with Neurology in 3-6 months after event to monitor how he is doing. Pt is aware to come back to ER if another seizure present and will consider starting AED if this happens again. I personally attended this patient and spent a total time of 45 minutes evaluating this patient including clinical assessment, review of chart, medical history imaging, and determining appropriate treatment and workup. HPI Consult Data Date of Consult: 08/06/23 HPI Narrative HPI Narrative: COLTEN GODOY, is a 37 M with no significant past medical history was brought to ED by EMS for the seizure episode witnessed by his who was truck driver flatbed of the car. As per the EMS report, was driving car and was sitting in the passenger seat and she noticed that became tense, rigid and extended posture with leaning backward. After that he started shaking that lasted for 1 to 2 minutes. The patient was postictal for about 4 to 5 minutes her pulled the car in the parking and called the EMS. As per patient himself, he stated he remembered that he was sitting in the car and then he does not remember until he found himself in the ambulance. EMS stated that patient was confused and disor iented x 3. Patient did not had any major injury as he was sitting in the car. He did not sleep deprived. He himself denies urinary incontinence biting tongue or recent acute illness including fever URI or dysuria or UTI or rash. Patient denies routine chronic alcohol use but drinks occasionally. He vapes nicotine but denies cigarette smoking or chewing. He denies substance use but he smokes marijuana. EMS vitals were in normal range. No prior history of head injury or seizure or major neurological history. In ED, patient vital in normal range. ED called teleneurology Dr. Nguyen and she recommended admission for EEG and MRI. Neurologic History History obtained from pt and who is at bedside. The pt was sitting in the car and there was no warning that he had any symptoms. The pt turned his head to thr right, then made a cry at the beginning before he then had rigid extended posture with arms pulled to the chest. His head shook up and down. He then sto pped after 2 min and had snoring and aytpical breathing. He bit his R tongue. No loss of bowel or bladder continance. He has had no changes in his habits. Admits to marijuana use but no change in the type that he typically uses. He has not had other changes in diet. He has no prior history of seizures, febrile seizure, or syncope. He has no history of stroke, TBI, meningitis/encephalitis. An uncle has history of seizure. [facility] Medical History no medical history Allergy/AdvReac Type Severity Reaction Status Date / Time No Known Allergies Allergy Verified 10/20/20 10:40 Social History Smoking Status: Current every day smoker tobacco type: e-cigarettes Vital Signs Vital Signs Vital Signs: 08/05/23 19:48 08/05/23 21:48 08/05/23 23:24 Temperature 97.2 F L 97.7 F L Temperature Source Temporal Oral Pulse Rate 75 63 64 Respiratory Rate 14 17 18 Respiratory Effort Respiratory Depth Respiratory Pattern Blood Pressure 136/75 H 112/68 Blood Pressure Mean 95 82 Blood Pressure Source Blood Pressure Position Blood Pressure Location Pulse Ox 100 96 98 Oxygen Delivery Method Room Air Room Air 08/06/23 01:16 08/06/23 03:43 08/05/23 23:30 Temperature 98.1 F Temperature Source Oral Pulse Rate 60 Respiratory Rate 18 Respiratory Effort Normal Non-Labored Respiratory Depth Normal Respiratory Pattern Normal Blood Pressure 104/62 Blood Pressure Mean 76 Blood Pressure Source Monitor Blood Pressure Position Semi-Fowlers Blood Pressure Location Right Arm Pulse Ox 97 99 Oxygen Delivery Method Room Air Room Air Room Air 08/06/23 04:00 08/06/23 09:02 08/06/23 10:33 Temperature 96.8 F L Temperature Source Temporal Pulse Rate 46 L Respiratory Rate 16 Respiratory Effort Normal Non-Labored Normal Non-Labored Respiratory Depth Normal Normal Respiratory Pattern Normal Normal Blood Pressure 120/81 H Blood Pressure Mean 94 Blood Pressure Source Blood Pressure Position Semi-Fowlers Blood Pressure Location Right Arm Pulse Ox 98 Oxygen Delivery Method Room Air Room Air 08/06/23 06:35 Temperature Temperature Source Pulse Rate Respiratory Rate Respiratory Effort Respiratory Depth Respiratory Pattern Blood Pressure Blood Pressure Mean Blood Pressure Source Blood Pressure Position Blood Pressure Location Pulse Ox 96 Oxygen Delivery Method Room Air Weight Weight: 76.34 kg Body Mass Index (BMI) 22.8 EEG Results Procedure Details EEG Procedure Details: CLINICAL INTERPRETATION This routine EEG is indicative of mild degree of encephalopathy. No clear epileptiform activity or seizure were noted during this period of recording. Occasional bursts of generalized sharply contoured theta slow activity, does not appear to be epileptiform in etiology. Clinical correlation is recommended. Physical Exam Narrative -? General: Laying comfortably in bed; in no acute distress. -? HENT: Normal oropharynx and mucosa. Normal external appearance of ears and nose. Exophthalmos. -? Neck: Supple, no pain or tenderness -? CV:? No peripheral edema. -? Pulmonary:? Normal respiratory effort. -? Ext: No cyanosis, edema, or deformity -? Skin: No rash. Normal palpation of skin.? -? Musculoskeletal: full range of motion; no joint tenderness. Normal digits and nails by inspection. No clubbing. -? NEURO: -? Mental Status: The patient was alert and oriented to time, place, and person. Normal recent/remote memory, concentration, and general fund of knowledge. -? Language: speech is clear, Naming, repetition, fluency, and comprehension intact. -? Cranial Nerves: PERRL 3 mm/brisk. EOMI, visual cardenas full, no facial asymmetry, facial sensation intact, hearing intact, tongue midline, no evidence of atrophy or fibrillations - there is a large bruise on the R tongue -? Motor: normal bulk, tone, and strength throughout. No pronator drift or satelliting. Upper and lower extremities equal bilaterally. -? Sensation- Intact to light touch bilaterally -? Coordination: No dysmetria on [id number], finger follow finger or [id number]. -? Gait- deferred Lab / Micro Data 08/05/23 19:55 08/06/23 07:10 Labs: Laboratory Results - last 24 hr 08/05/23 19:55: WBC 8.2, RBC 4.77, Hgb 13.6, Hct 41.3, MCV 86.6, MCH 28.5, MCHC 32.9, RDW Std Deviation 41.0, RDW Coeff of Britni 13.2, Plt Count 412, MPV 11.4, Immature Gran % (Auto) 0.400, Neut % (Auto) 49.3, Lymph % (Auto) 36.5, [place] % (Auto) 9.4, Eos % (Auto) 3.2, Baso % (Auto) 1.2 H, Absolute Neuts (auto) 4.0, Absolute Lymphs (auto) 2.98, Nucleated RBC % 0, Sodium 138, Potassium 3.2 L, Chloride 107, Carbon Dioxide 25.0, Anion Gap 6, BUN 11, Creatinine 0.95, Estim Creat Clear Calc 111.34, Est GFR (MDRD) Af Amer 112, Est GFR (MDRD) Non-Af 93, BUN/Creatinine Ratio 11.5, Glucose 83, Calcium 9.1, Troponin I High Sens 5 08/05/23 21:56: Phosphorus 1.2 L, Magnesium 2.1, Total Bilirubin 0.30, Direct Bilirubin 0.11, GGT 10 L, AST 17, ALT 22, Alkaline Phosphatase 44 L, Total Protein 7.2, Albumin 3.8, Globulin 3.4, Ethyl Alcohol < 3.0 08/05/23 22:36: Urine Opiates Screen NEGATIVE, Urine Methadone Screen NEGATIVE, Ur Barbiturates Screen NEGATIVE, Ur Phencyclidine Scrn NEGATIVE, Ur Amphetamines Screen NEGATIVE, MDMA (Ecstasy) Screen NEGATIVE, U Benzodiazepines Scrn NEGATIVE, Urine Cocaine Screen NEGATIVE, U Cannabinoids Screen POSITIVE H, Ur Drug Screen Comment 08/06/23 07:10: Sodium 138, Potassium 4.0, Chloride 110 H, Carbon Dioxide 26.0, Anion Gap 2 L, BUN 11, Creatinine 0.84, Estim Creat Clear Calc 127.49, Est GFR (MDRD) Af Amer 131, Est GFR (MDRD) Non-Af 108, BUN/Creatinine Ratio 13.1, Glucose 109 H, Calcium 8.4 L, Phosphorus 4.8 Imaging Radiology Impression Brain CT 08/05/23 21:08 IMPRESSION: Normal unenhanced CT scan of the brain for age. Electronically Signed: Judy Tang MD at 21:48 EST , Brain MRI 08/06/23 05:55 IMPRESSION: Normal MRI brain without contrast including the thin coronal cuts through the limbic lobes. Electronically Signed: Jone Addison MD at 10:43 EST , Active Medications Active Medications Active Medications: Current Medications Generic Name Dose Route Start Last Admin Trade Name Freq PRN Reason Stop Dose Admin Acetaminophen 650 mg 08/05/23 23:14 Acetaminophen 325 Mg Tablet PO Q6H PRN PRN Pain 1-10 Or Fever>100.7 Potassium Chloride/Sodium Chloride 20 meq in 1,000 mls @ 100 mls/hr 08/05/23 23:14 08/06/23 02:42 Kcl 20meq In 0.45% Ns 1000ml IV 08/06/23 19:13 100 mls/hr .Q10H DWIGHT Administration Sodium Chloride 250 mls @ 15 mls/hr 08/05/23 23:21 IV .[id number] PRN Additional IVPB Infusion Sodium Chloride 250 mls @ 15 mls/hr 08/05/23 23:21 IV .[id number] PRN Saline Flush Lorazepam 2 mg 08/05/23 23:14 Lorazepam 2 Mg/Ml Syringe IV Q4H PRN PRN SEIZURES Ondansetron HCl 4 mg 08/05/23 23:14 Ondansetron 4 Mg/2 Ml Vial IV Q8H PRN PRN NAUSEA/VOMITING Senna/Docusate Sodium 2 tablet 08/05/23 23:14 Senna/Docusate Sodium 1 Tablet PO BID PRN PRN Constipation Sodium Chloride 10 - 40 ml 08/05/23 23:21 0.9% Saline Lock 10 Ml Syringe IV UD PRN SALINE FLUSH
--- NOTE | 2023-08-06 13:23 | DCINST_ITS ---
Discharge Instructions Diet Discharge Diet: No restrictions Activity Discharge Activity: No Restrictions Weight Bearing Status: Full weight bearing Follow Up Care Test Results: Test results from this visit will be discussed in further detail at your follow- up appointment, if applicable. Discharge Plan Admission Admit Date/Time: 08/05/23 21:49 Primary Reason for Your Visit: seizure Attending Provider: Rodrigo Juarez Primary Care Provider: Care Physician,No Primary Consulting Providers: Renaldo Haley; Ezekiel Willingham; Anu Quick; Kimberly Burgos; Lucia Tellez; Morales Ambriz; Lyubov Chand; Rayshawn Campa; Bam Amor; Bety Berry; Sridhar Mcdermott; Fely Love; Anne Marie Atkinson; Belinda Padilla; Mario Hayden; Deysi Angel; Erik Oh; Mariola Scuhltz; Becki Barrios; Ale Love; Eduardo Hamilton; Meghan Tyson; SOCO FRANCIS; Rashi Kiran; Viji Torres; Jamarcus Millard Instructions Additional Instructions / Restrictions: Please establish with a primary care doctor when able. Discharge Orders/Prescriptions Referrals / Follow Up: Care Physician,No Primary [Primary Care Provider] - Disposition Disposition (needs filled in before D/C Order can be placed): Home, Self Care
--- NOTE | 2023-08-06 13:24 | DS.PCM_ITS ---
Providers Date of Admission: 08/05/23 Date of Discharge: 08/06/23 Primary Care Physician: No Primary Care Phys Consultations 08/05/23 21:18 Tele [Consult: Tele-Neurology] Routine Consulting Provider: [facility] Reason for Consult: seizure EMERGENT Consult: Yes Notified: Yes Date Notified: 08/05/23 Time Notified: 21:19 Method of Notification: ED Physician Initiated Method of Consult:: Telemedicine Nursing Unit Staff Notify [facility] of Tele-Neurology Consult: Yes 08/05/23 23:14 Consult: Tele-Neurology Routine Consulting Provider: [facility] Reason for Consult: first time siezure EMERGENT Consult: No MD Notified: Yes Date Notified: 08/05/23 Time Notified: 21:54 Method of Notification: ED Physician Initiated Nursing Unit Staff Notify [facility] of Tele-Neurology Consult: Yes Reason For Visit: FIRST EPISODE OF SEIZURE Diagnosis Discharge Diagnosis (1) Seizure: Status: Acute Code(s): R56.9 - Unspecified convulsions Hospital Course Operations None Procedures Electroencephalogram, EKG and - (CT brain without contrast, MRI brain without contrast) Summary of Care Provided Minutes Spent on Discharge: 25 Hospital Course: Patient is a 37-year-old male who presented to [facility] ED on 08/05/2023 with concern for a seizure. Short hospital course as noted below. Patient discharged home in stable condition on . Seizure episode Presented after 4 to 5-minute seizure episode noted by . No prior seizure history. CT brain without contrast nonacute. MRI brain normal. Spot EEG la rgely unremarkable. Lab workup fairly benign. No recent illnesses with fevers noted per patient or . Very occasional alcohol use. ? Teleneurology followed. Given negative imaging and EEG and this being first unprovoked seizure with unclear trigger, patient okay for discharge home without need for any antiepileptic drugs. Discharged home on 08/06. 2. Mild hypokalemia and hypophosphatemia, resolved ? Potassium 3.2, phosphorus 1.2, magnesium 2.1 on admit. Resolved with repletion. Total clinical time spent by myself addressing the patient's discharge needs: 25 minutes. Physical Exam Const alert, oriented x3, no apparent distress, average body habitus, healthy appearing and well nourished Constitutional Narrative: Pleasant male, sitting up comfortably bed, conversing normally, no acute distress. General Appearance: cooperative, comfortable, well kempt and well developed HEENT normocephalic, head/scalp atraumatic, hearing grossly normal bilaterally, nasal mucous membranes and turbinates normal and moist oral mucous membranes Eyes PERRL, EOMs intact bilaterally and conjunctivae normal Neck full ROM, no lymphadenopathy and supple Lymph Lymphatic: no lymphadenopathy noted Chest inspection of chest normal Resp normal respiratory effort, normal air movement, no use of accessory muscles and clear to auscultation bilaterally Cardio regular rate, regular rhythm, no murmurs and peripheral pulses 2+ throughout GI normal to inspection, nondistended, normoactive bowel sounds, soft to palpation, non-tender and non-distended Back/Spine normal ROM Extremity normal to inspection, full ROM and no pedal edema Skin no rashes or lesions noted Neuro no focal motor deficits and no sensory deficits noted Speech: speech normal Motor Exam: strength 5/5 throughout Psych mental status grossly normal Weight / BMI Weight Weight: 76.34 kg Body Mass Index (BMI) 22.8 ABG / Lab / Microbiology Data 08/05/23 19:55 08/06/23 07:10 Laboratory: Laboratory Results - last 24 hr 08/05/23 19:55: WBC 8.2, RBC 4.77, Hgb 13.6, Hct 41.3, MCV 86.6, MCH 28.5, MCHC 32.9, RDW Std Deviation 41.0, RDW Coeff of Britni 13.2, Plt Count 412, MPV 11.4, Immature Gran % (Auto) 0.400, Neut % (Auto) 49.3, Lymph % (Auto) 36.5, [place] % (Auto) 9.4, Eos % (Auto) 3.2, Baso % (Auto) 1.2 H, Absolute Neuts (auto) 4.0, Absolute Lymphs (auto) 2.98, Nucleated RBC % 0, Sodium 138, Potassium 3.2 L, Chloride 107, Carbon Dioxide 25.0, Anion Gap 6, BUN 11, Creatinine 0.95, Estim Creat Clear Calc 111.34, Est GFR (MDRD) Af Amer 112, Est GFR (MDRD) Non-Af 93, BUN/Creatinine Ratio 11.5, Glucose 83, Calcium 9.1, Troponin I High Sens 5 08/05/23 21:56: Phosphorus 1.2 L, Magnesium 2.1, Total Bilirubin 0.30, Direct Bilirubin 0.11, GGT 10 L, AST 17, ALT 22, Alkaline Phosphatase 44 L, Total Protein 7.2, Albumin 3.8, Globulin 3.4, Ethyl Alcohol < 3.0 08/05/23 22:36: Urine Opiates Screen NEGATIVE, Urine Methadone Screen NEGATIVE, Ur Barbiturates Screen NEGATIVE, Ur Phencyclidine Scrn NEGATIVE, Ur Amphetamines Screen NEGATIVE, MDMA (Ecstasy) Screen NEGATIVE, U Benzodiazepines Scrn NEGATIVE, Urine Cocaine Screen NEGATIVE, U Cannabinoids Screen POSITIVE H, Ur Drug Screen Comment 08/06/23 07:10: Sodium 138, Potassium 4.0, Chloride 110 H, Carbon Dioxide 26.0, Anion Gap 2 L, BUN 11, Creatinine 0.84, Estim Creat Clear Calc 127.49, Est GFR (MDRD) Af Amer 131, Est GFR (MDRD) Non-Af 108, BUN/Creatinine Ratio 13.1, Glucose 109 H, Calcium 8.4 L, Phosphorus 4.8 Radiography Diagnostic Testing: Radiology Impression Brain CT 08/05/23 21:08 IMPRESSION: Normal unenhanced CT scan of the brain for age. Electronically Signed: Judy Tang MD at 21:48 EST , Brain MRI 08/06/23 05:55 IMPRESSION: Normal MRI brain without contrast including the thin coronal cuts through the limbic lobes. Electronically Signed: Jone Addison MD at 10:43 EST , D/C Instructions Discharge Diet: No restrictions Weight Bearing Status: Full weight bearing Meaningful Use Info Meaningful Use Diagnoses (Choose all that apply): None applicable Discharge Plan Admission Admit Date/Time: 08/05/23 21:49 Primary Reason for Your Visit: seizure Attending Provider: Rodrigo Juarez Primary Care Provider: Care Physician,No Primary Consulting Providers: Renaldo Haley; Ezekiel Willingham; Anu Quick; Kimberly Burgos; Lucia Tellez; Morales Ambriz; Lyubov Chand; Rayshawn Campa; Bam Amor; Bety Berry; Sridhar Mcdermott; Fely Love; Anne Marie Atkinson; Belinda Padilla; Mario Hayden; Deysi Angel; Erik Oh; Mariola Schultz; Becki Barrios; Ale Love; Eduardo Hamilton; Meghan Tyson; SOCO FRANCIS; Rashi Kiran; Viji Torres; Jamarcus Millard Instructions Additional Instructions / Restrictions: Please establish with a primary care doctor when able. Discharge Orders/Prescriptions Referrals / Follow Up: Care Physician,No Primary [Primary Care Provider] - Disposition Disposition (needs filled in before D/C Order can be placed): Home, Self Care Charges/Coding Visit Charges Inpatient E&M: 86105 Disch Hosp
--- NOTE | 2023-08-06 13:34 | CASEMGMT ---
KALEIGH CM to pt room at this time for DC assistance. Pt states that he feels safe and comfortable DC today. Pt states that he has many resources including his family to help him at home if needed. Pt denies needing any therapy. Pt given a list of PCP at this time. Pt denies further needs.
== END 2023-08-06 13:24 | disposition home or self-care (01) ==
LOC: ED 21:00 → PCU 08-06 07:08
PROVIDERS: Admitting Provider Internal Medicine; Emergency Provider Student in an Organized Health Care Education/Training Program; Visit Provider Hospitalist
DX: R56.9 Unspecified convulsions (principal); E87.6 Hypokalemia; F17.290 Nicotine dependence, other tobacco product, uncomplicated
CPT/HCPCS: 36415; 70450; 70551; 80048; 80076; 80307; 80320; 82977; 83735; 84100; 84484; 85025; 93005; 94668; 95819; 96365; 96366; 96368; 96375; 99221; 99285; J7030; J7050; A4216; G0378; G0480; J2405

== ENCOUNTER 2023-11-12 16:14 | Emergency (ER) | payer OTHER, MEDICAID, SELFPAY ==
[2023-11-12 16:16] VITALS: BP 127/83; PULSE 61; RESP 18; TEMP 36.2; O2SAT 100; BMI 21.4
--- NOTE | 2023-11-12 16:34 | EDS_ITS ---
HPI History of Present Illness Chief Complaint: Laceration Informant: patient Occured/Mechanism Mechanism/Context: Yes puncture wound Onset/Context/Timing Onset: Today and Hours (1) Context: Sudden Onset Quality of Pain: Sharp Location: Left hand Worsened by: Nothing Relieved by: Elevation Associated Symptoms Associated Symptoms: Negative for Parasthesia, Weakness or Loss of Funtion Narrative Narrative: Patient presents with left hand injury that occurred today. Patient states he was at work and a piece of metal went into his left hand. Patient is right-hand dominant. Patient describes his pain as sharp. Patient states nothing makes it worse. Patient states it is better with elevation. Patient denies any paresthesias or weakness. Patient denies any other injuries. Patient states his last tetanus was approximately 8 years ago. Tetanus Immunization: 5-10 years [facility] Medical History no medical history no medical history Home Medications ?Medication ?Instructions ?Recorded ?Last Taken ?Type cephalexin 500 mg capsule 500 mg PO Q6 #40 CAPSULES 11/12/23 Unknown Rx Allergy/AdvReac Type Severity Reaction Status Date / Time No Known Allergies Allergy Verified 11/12/23 16:15 Surgical History (Updated 11/12/23 @ 16:[address] Sven Rodgers DO) Status post ORIF of fracture of ankle Social History Smoking Status: Current every day smoker tobacco type: e-cigarettes ROS ROS ED Constitutional Constitutional ED: Denies chills or fever(s) Eyes Eyes: Denies blurry vision or change in vision ENT ENT ED: Denies rhinorrhea or sore throat Cardiovascular Cardiovascular: Denies chest pain or palpitations Respiratory/Chest Respiratory/Chest: Denies cough or dyspnea Gastrointestinal Gastrointestinal: Denies nausea or vomiting Genitourinary Genitourinary ED: Denies dysuria or hematuria Musculoskeletal Musculoskeletal: Denies back pain or neck pain Integumentary Denies abscess or rash Neurologic Neurologic: Denies headache(s) or weakness Allergic/Immunologic Allergic/Immunologic ED: Denies mouth swelling or urticaria EXAM Physical Exam Const Vital Signs: 11/12/23 16:16 Temperature 97.2 F L Temperature Source Temporal Pulse Rate 61 Respiratory Rate 18 Blood Pressure 127/83 H Blood Pressure Mean 97 Pulse Ox 100 Oxygen Delivery Method Room Air Positive well nourished and well developed General Appearance ED: well developed and NAD HEENT Reports moist mucous membranes Neck full ROM and supple Extremity Extremity Narrative: There is a 1 cm full-thickness linear laceration over the palmar aspect of the left hand on the thenar eminence. There is mild gapping of the wound margins. There are no foreign bodies visualized. There is no bony crepitance or step-off noted. Sensation was intact to light touch in the radial, median, and ulnar areas. Strength is 5/5 in the radial, median, and ulnar areas. Capillary refill was less than 2 seconds in all digits. Radial pulses are equal bilaterally. Neuro oriented x3, CN's II-XII intact bilaterally, moves all extremities, no focal motor deficits and no sensory deficits noted Sensorium / Orientation: alert Motor Exam: strength 5/5 throughout MDM MDM MDM Narrative Medical decision making narrative: Differential diagnosis includes laceration, occult foreign body, occult fracture, and contusion. X-rays of the left hand will be obtained to assess for retained foreign body and occult fracture. Radiography Diagnostic Testing: X-rays of the left hand were obtained. There are 3 views. On my independent interpretation, there is no acute fracture. There is a metallic foreign body noted in the soft tissues. Radiologist also interpreted the x-ray and agrees. Management Discussion w/another healthcare provider: Radiologist Treatment and Re-Evaluation Narrative: Patient was given tetanus booster. The wound was cleaned and irrigated with copious amounts of normal saline. The wound was anesthetized with 1% plain lidocaine locally. The metallic foreign body was removed without difficulty. The wound was closed with 2 simple interrupted # 4-0 nylon sutures under sterile technique. Patient tolerated the procedure well. Bacitracin dressing was applied. Patient was given a dose of Keflex here. Patient was given a prescription for Keflex. Patient was instructed to keep the wound clean and dry. Patient was instructed to follow-up with his primary care physician or Workmen's Comp. physician in 7 days for wound recheck and suture removal. Patient understood and was agreeable with the plan. All questions were answered. Procedures Lacerations Left hand: Length: 1 cm Depth: Sub Q Shape: Linear Laceration repair: Foreign material removed, Irrigated, Lidocaine, Local and Skin sutures Irrigated (ml): 100 Number of Sutures/Sindi: 2 Suture Information: Ethilon, Simple and 4-0 Discharge Plan Triage Chief Complaint: Laceration ED Provider: Sven Rodgers Dx/Rx/DC Orders Clinical Impression: Laceration of left hand, Foreign body of left hand Instructions: ED Foreign Body, Soft Tissue (Removed), ED Laceration, Hand: All Closures Prescriptions: New cephalexin 500 mg capsule 500 mg PO Q6 Qty: 40 0RF Stand Alone Forms: Work Status Form Primary Care Provider: Care Physician,No Primary Referrals: Care Physician,No Primary [Primary Care Provider] - Clinic,NOW [Non-Staff] - 7 Days for suture removal Print Language: Frisian Disposition Disposition: Home, Self Care Discharge Date/Time: 11/12/23 19:44
--- NOTE | 2023-11-12 17:05 | RAD_ITS ---
STUDY: X-RAY - LEFT HAND REASON FOR EXAM: Male, 38 years old. Injury/Pain TECHNIQUE: 3 view(s) of the hand. COMPARISON: None. FINDINGS: Normal radiocarpal articulation. Normal distal radioulnar joint. Normal visualized carpal bones. Normal carpal articulations Normal carpometacarpal articulation of the thumb. Normal second through fifth carpometacarpal joints. Normal metacarpi. Normal metacarpophalangeal joint of the thumb. Normal interphalangeal joint of the thumb. Normal proximal and distal phalanges of the thumb. Normal metacarpophalangeal joints of the second through fifth fingers. Normal proximal and distal interphalangeal joints of the second through fifth fingers. Normal phalanges of the second through fifth fingers. Metallic foreign body is noted on the PA and oblique views of the hand in the soft tissues of the thenar eminence at the level of the proximal shaft of the first and second metacarpals however on the lateral view, there is a metallic foreign body lateral to the thumb at the level of the metacarpal phalangeal joint. However clinical correlation is recommended RAD/Hand Min 3 Views IMPRESSION: Metallic foreign body within the hand adjacent to the first metacarpal N.B. : The above Results were Read Back by Sea Kyle MD to Sven Rodgers DO, and understanding confirmed on 11/12/2023 17:55:23 (ET). Electronically Signed: Sea Kyle MD at 17:58 EDT ,
[2023-11-12] MEDS: Diphth,Pertuss(Acell),Tet Vac 0.5 ML Vial IM (17:09)
[2023-11-12] MEDS: Lidocaine 1% (20 ml mdv) 20 ML Vial INFILT (17:09)
[2023-11-12] MEDS: Cephalexin 500 MG Capsule PO (19:34)
== END 2023-11-12 19:44 | disposition home or self-care (01) ==
PROVIDERS: Emergency Provider Emergency Medicine; Visit Provider Emergency Medicine
DX: S61.412A Laceration without foreign body of left hand, initial encounter (principal); L92.3 Foreign body granuloma of the skin and subcutaneous tissue; Z18.10 Retained metal fragments, unspecified; F17.290 Nicotine dependence, other tobacco product, uncomplicated; Z23 Encounter for immunization; W26.8XXA Contact with other sharp object(s), not elsewhere classified, initial encounter; Y99.0 Civilian activity done for income or pay; Y92.89 Other specified places as the place of occurrence of the external cause
CPT/HCPCS: 12001; 73130; 90471; 90715; 99283

== ENCOUNTER → 2024-10-23 | Outpatient (CLI) | payer MEDICAID, SELFPAY ==
[2024-10-23 11:20] LABS: Anion Gap 9 (5-15); BUN 11 mg/dL (4-19); BUN/Creat Ratio 10.6 RATIO (10-20); Calcium,Total 9.4 mg/dL (7.6-11.0); Carbon Dioxide 26.5 mmol/L (21.0-32.0); Chloride 103 mmol/L (98-108); Cholesterol 152 mg/dL (<=200); Creatinine, Serum 1.04 mg/dL (0.70-1.20); EST Glomerular Filtration Rate 93 (>60); Glucose 104 mg/dL (70-99); High Density Lipoprotein 49 mg/dL; Low Density Lipoprotein Calc. 91 mg/dL; Potassium 3.6 mmol/L (3.3-5.1); Sodium Level 139 mmol/L (133-145); Triglycerides 57 mg/dL; Very Low Density Lipoprotein 11 mg/dL (5-40); cholesterol:hdl ratio screen 3.08
[2024-10-23 11:22] LABS: Erythrocyte Sedimentation Rate 4 mm/hr (0-20)
[2024-10-24 07:07] LABS: CRP, High Sensitivity 0.71 mg/L (0.00-3.00)
== END | disposition home or self-care (01) ==
LOC: LAB 10:05
PROVIDERS: PCP Family Medicine; Referring Provider Family Medicine; Visit Provider Family Medicine
DX: Z00.00 Encounter for general adult medical examination without abnormal findings (principal); M25.569 Pain in unspecified knee; F32.A Depression, unspecified
CPT/HCPCS: 36415; 80048; 80061; 84443; 85652; 86141

== ENCOUNTER 2024-11-23 14:52 | Emergency (ER) | payer MEDICAID, SELFPAY ==
[2024-11-23 14:53] VITALS: BP 130/72; PULSE 86; RESP 18; TEMP 36.7; O2SAT 99
[2024-11-23 15:40] LABS: Absolute Lymphocyte Count 1.95 X10^3/uL (0.83-4.51); Absolute Neutrophil Count 5.4 X10^3/uL (2.0-7.7); Basophil# 0.11 X10^3/uL; Basophil% 1.3 % (0-1); Eosinophil# 0.08 X10^3/uL; Hematocrit 40.1 % (40-54); Hemoglobin 13.7 g/dL (13.0-16.5); Lymphocyte # 1.95 X10^3/ul (0.83-4.51); Lymphocyte % 23.3 % (19-41); Mean Corp Hgb Conc 34.2 g/dL (32-36); Mean Corpuscular Hgb 29.3 pg (27.0-32.0); Mean Corpuscular Volume 85.7 fL (80-94); Mean Platelet Vol. 10.4 fl (6.2-12.0); Monocyte# 0.75 X10^3/uL; NRBC Flagged by Analyzer 0 % (0-5); Neutrophil # 5.44 X10^3/uL (2.7-7.7); Platelet Count 503 K/mm3 (150-450); RBC Distribution Width CV 13.2 % (11.6-14.6); RBC Distribution Width SD 40.5 fl (35.1-43.9); Red Blood Count 4.68 M/mm3 (4.6-6.2); White Blood Count 8.4 K/mm3 (4.4-11.0)
--- NOTE | 2024-11-23 15:46 | CT_ITS ---
PROCEDURE: BRAIN/HEAD WITHOUT CONTRAST 11/23/2024 REASON FOR EXAM: SEIZURE, HEADACHE TECHNIQUE: Head CT without intravenous contrast. Coronal and Sagittal reconstruction series were provided. One or more dose reduction techniques were used (e.g., Automated exposure control, adjustment of the mA and/or kV according to patient size, use of iterative reconstruction technique. RADIATION DOSE SUMMARY: CTDlvol: 44.99 MGy DLP: 812.90 MGycm FINDINGS: No intracranial mass. No intracranial hemorrhage. No edema. No acute infarct. Mild right-sided posterior ethmoid and left maxillary mucosal thickening CT/Brain/Head without Contrast IMPRESSION: No acute abnormality Reading Location: [facility]
--- NOTE | 2024-11-23 15:48 | EDS_ITS ---
HPI History of Present Illness Chief Complaint: Seizure Narrative Narrative: Patient is a 39-year-old male with no known significant past medical history who presented to the emergency department the chief complaint of seizure. Patient states that he was at work and does not recall much of what happened with the event. He states that his coworker saw the event but did not provide details to him. When EMS arrived patient was postictal however when they arrived to the emergency department he was alert and oriented. Patient states that this happened 1 time in the past and is not on any seizure medications and told that this was a fluke. Patient states that while at work he felt fine prior to this and had no complaints. He states that currently he does have a headache and does feel nauseous. PFSH PFSH Home Medications ?Medication ?Instructions ?Recorded ?Last Taken ?Type cephalexin 500 mg capsule 500 mg PO Q6 #40 CAPSULES Unknown Rx Allergy/AdvReac Type Severity Reaction Status Date / Time No Known Allergies Allergy Verified 11/23/24 14:57 Surgical History Status post ORIF of fracture of ankle Social History Smoking Status: Current every day smoker tobacco type: e-cigarettes ROS ROS ED ROS Narrative Constitutional: Complains of headache denies fevers, chills, lightness, dizziness Eyes: Denies change in vision double vision blurry vision Cardiovascular: Denies chest pain or palpitations Respiratory: Denies coughing wheezing shortness of breath Abdomen: Denies abdominal pain nausea vomit diarrhea : Denies urinary symptoms Neurological: Denies numbness, weakness, tingling Musculoskeletal: Denies back pain Skin: Denies rashes or lesions EXAM Physical Exam Narrative Exam Narrative: General: Patient was seen in hallway in a chair resting comfortably did not appear to be in acute distress Head: Atraumatic, normocephalic Eyes: PERRL bilaterally, EOMI bilaterally, no conjunctival injection noted Neck: Soft, supple, trachea midline Cardiovascular: Regular in rhythm no murmurs gallops rubs noted Respiratory: Clear to auscultation bilaterally Abdomen: Soft, nondistended, nontender to palpation Extremities: +5/5 strength in the bilateral upper and lower extremities, radial pulses +2/4 in the bilateral extremities, no pedal edema on exam Neurological: Patient following commands and that he was at [facility] years 2024 NIH of 0 GCS 15 Skin: Warm, dry, intact no rashes or lesions noted Const Vital Signs: 11/23/24 14:53 11/23/24 16:53 11/23/24 18:00 Temperature 98.1 F Temperature Source Oral Pulse Rate 86 66 66 Respiratory Rate 18 Blood Pressure 130/72 H 110/83 H 120/74 Blood Pressure Mean 91 92 89 Pulse Ox 99 100 100 Oxygen Delivery Method Room Air MDM MDM MDM Narrative Medical decision making narrative: Patient is a 39-year-old male who presented to the emergency department after a seizure at work. On the differential diagnosis includes but not limited to seizure, syncope with involuntary shaking, electrolyte abnormality, intracranial hemorrhage. Once workup is obtained reviewed he will be reevaluated. Patient be given IV fluids and Reglan. Patient's CBC was reviewed and showed no evidence leukocytosis white blood count was 8.4, he was 13.7, platelet count was noted be 503. Patient sodium was 137, potassium normal 3.9, creatinine normal at 0.88. Patient's AST and ALT are 24 and 12 respectively. Patient's lipase normal at 34, urinalysis reviewed and showed negative ketones negative leukocyte esterase and microscopic pending however have low suspicion for infection as he does not have any urinary symptoms and overall does not grossly look infected based on negative nitrites and negative leukocyte esterase. Patient CT head and brain without contrast reviewed and showed no acute abnormalities. On reevaluation the patient he is feeling better he would like to go home at this point time. At this point time have low suspicion for seizure as he states that this is only happened 1 time in the past and was told that this was a fluke. He did not have any urinary continence did not have biting of his tongue during this episode I told him that there is a chance that he just passed out and had involuntary abnormal movements that were witnessed. He is advised to refrain from high risk activities such as being up and heights swimming alone etc. He was advised to follow-up with Workmen's Comp. as well as a neurologist outpatient setting and return with any other concerns or worsening symptoms. He is agreeable to plan as well as significant other at bedside they are requesting work note which will be provided. Lab Data Labs: Laboratory Results - last 24 hr 11/23/24 11/23/24 15:31 15:45 WBC 8.4 RBC 4.68 Hgb 13.7 Hct 40.1 MCV 85.7 MCH 29.3 MCHC 34.2 RDW Std Deviation 40.5 RDW Coeff of Britni 13.2 Plt Count 503 H MPV 10.4 Immature Gran % (Auto) 0.400 Neut % (Auto) 65.0 Lymph % (Auto) 23.3 [place] % (Auto) 9.0 Eos % (Auto) 1.0 Baso % (Auto) 1.3 H Absolute Neuts (auto) 5.4 Absolute Lymphs (auto) 1.95 Nucleated RBC % 0 Sodium 137 Potassium 3.9 Chloride 101 Carbon Dioxide 25.0 Anion Gap 11 BUN 12 Creatinine 0.88 Est GFR (MDRD) Non-Af 111 BUN/Creatinine Ratio 13.7 Glucose 98 Calcium 9.7 Total Bilirubin 0.16 AST 24 ALT 12 Alkaline Phosphatase 47 Total Protein 7.4 Albumin 4.4 Globulin 3.0 Albumin/Globulin Ratio 1.5 Lipase 34 Urine Color Straw Urine Clarity Clear Urine pH 8.0 Ur Specific [place] 1.015 Urine Protein 15 H Urine Glucose (UA) Normal Urine Ketones Negative Urine Occult Blood Negative Urine Nitrite Negative Urine Bilirubin Negative Urine Urobilinogen Normal Ur Leukocyte Esterase Negative Radiography Diagnostic Testing: Clinical Impression(s) from Imaging Studies Brain CT 11/23/24 15:46 IMPRESSION: No acute abnormality Reading Location: [facility] Discharge Plan Triage Chief Complaint: Seizure ED Provider: Brennen Sandoval Dx/Rx/DC Orders Clinical Impression: Abnormal involuntary movement Prescriptions: No Action cephalexin 500 mg capsule 500 mg PO Q6 Qty: 40 0RF Primary Care Provider: Mele Santiago Referrals: Mele Santiago MD [Primary Care Provider] - [facility] [Group of Physicians] - Uriel Thurston, DO [Non-Staff] - Activity Restrictions/Additional Instructions: Avoid high risk activities such as swimming alone, being up and heights etc. until being cleared by neurology. [facility]. Return with worsening symptoms any concerns your blood work did not show any acute findings and your CT head was normal. Print Language: Indonesian Disposition Disposition: Home, Self Care
[2024-11-23 15:57] LABS: Bacteria 0 SEEN /hpf (None Seen); Mucous, Urine 0 SEEN /hpf (<or=2+); Red Blood Cells-Urine 0 SEEN /hpf (0-5); Squamous Epithelial Cells - UA 0 SEEN /hpf (0-5); White Blood Cells 0 SEEN /hpf (0-5)
[2024-11-23 16:00] LABS: ALB/GLOB Ratio 1.5 RATIO (0.9-2.4); AST(SGOT) 24 U/L (<=37); Alanine Aminotransfer ALT/SGPT 12 U/L (<=46); Albumin, Serum 4.4 g/dL (3.5-5.0); Alkaline Phosphatase 47 U/L (40-129); Anion Gap 11 (5-15); BUN 12 mg/dL (4-19); BUN/Creat Ratio 13.7 RATIO (10-20); Calcium,Total 9.7 mg/dL (7.6-11.0); Chloride 101 mmol/L (98-108); Creatinine, Serum 0.88 mg/dL (0.70-1.20); EST Glomerular Filtration Rate 111 (>60); Glucose 98 mg/dL (70-99); Lipase 34 U/L (13-75); Potassium 3.9 mmol/L (3.3-5.1); Protein, Total 7.4 g/dL (5.9-8.4); Sodium Level 137 mmol/L (133-145); Total Bilirubin 0.16 mg/dL (0.00-1.30)
[2024-11-23] MEDS: Metoclopramide 10 MG/2 ML Vial IV (16:27)
[2024-11-23] MEDS: 0.9% Normal Saline (1000mL) 1,000 ML 999 ML IV (16:27)
[2024-11-23 16:30] LABS: Color, Urine Straw (Yellow); Glucose, Dipstick Normal (Normal); Ketone-Dipstick Negative (Negative); Leukocyte Esterase-Dipstick Negative /ul (Negative); Nitrite-Dipstick Negative (Negative); Occult Blood-Urine Negative /ul (Negative); Protein-Dipstick 15 mg/dl (Negative); Specific Gravity, Urine 1.015 (1.002-1.030); Urine Bilirubin Dipstick Negative (Negative); Urine Clarity Clear (Clear); Urine Urobilinogen Normal (Normal)
[2024-11-23 16:53] VITALS: BP 110/83; PULSE 66; O2SAT 100
[2024-11-23 18:00] VITALS: BP 120/74; PULSE 66; O2SAT 100
[2024-11-23 18:43] VITALS: BP 131/71; PULSE 98; RESP 14; TEMP 35.5; O2SAT 99
== END 2024-11-23 18:47 | disposition home or self-care (01) ==
PROVIDERS: Emergency Provider Emergency Medicine; PCP Family Medicine; Visit Provider Emergency Medicine
DX: R25.9 Unspecified abnormal involuntary movements (principal); F17.290 Nicotine dependence, other tobacco product, uncomplicated
CPT/HCPCS: 70450; 80053; 81001; 83690; 85025; 99285; A4216